=== PATIENT | female | born 1955 | race Two or more races ===

== ENCOUNTER 2020-10-07 08:50 | Inpatient (IN) | payer MEDICARE, OTHER ==
[~2020-10-07] VITALS: Ht 165.1 cm; Wt 98.5 kg
[2020-10-07 09:39] LABS: Basophils # (auto) 0 10 ^3/uL (0-0.2); Basophils % (auto) 0.1 % (0.0-2.0); Eosinophils # (auto) 0 10 ^3/uL (0-0.8); Hematocrit 44.7 % (36.0-46.0); Lymphocytes # (auto) 0.9 10 ^3/uL (0.4-5.4); Lymphocytes % (auto) 8.9 % (10.0-50.0); Mean Corpuscular Hgb Conc. 33.5 g/dL (32.0-36.0); Mean Corpuscular Volume 92.6 fL (80.0-100.0); Monocytes # (auto) 0.5 10 ^3/uL (0-1.3); Monocytes % (auto) 5.2 % (0.0-12.0); Neutrophils # (auto) 8.4 10 ^3/uL (1.6-8.6); Neutrophils % (auto) 85.8 % (37.0-80.0); Nucleated Red Blood Cells % 0.1 %; Platelet Count (auto) 173 10^3/uL (140-450); Red Blood Cells 4.83 10^6/uL (4.0-5.20); Red Cell Distribution Width 13.6 % (11.8-14.3); White Blood Cell 9.9 10^3/uL (4.4-10.8)
[2020-10-07 09:57] LABS: Albumin 2.3 g/dL (3.4-5.0); Potassium 3.7 mmol/L (3.5-5.1)
[2020-10-07 10:05] LABS: BUN/Creatinine Ratio 14.1; Bilirubin, Total 0.7 mg/dL (0.2-1.0); CRP High Sensitivity 14.6 mg/dL (< 0.3); Total Protein 7.3 g/dL (6.4-8.2)
[2020-10-07 10:16] LABS: Urine Bacteria NONE SEEN /hpf (None Seen); Urine Blood 2+ /uL (Negative); Urine Hyaline Cast FEW /lpf (0 - 2); Urine Mucus FEW (None Seen); Urine Specific Gravity 1.019 (1.001-1.035); Urine WBC 7 /hpf (0 - 5)
[2020-10-07] MEDS ORDERED: DexAMETHasone SOD PHOS 10MG/1ML VIAL INJ IV ONE (15:45)
[2020-10-07] MEDS ORDERED: DOXYCYCLINE 100MG/250ML 250 ML IV ONE (15:45)
[2020-10-07] MEDS ORDERED: ENOXAPARIN SOD 100 MG/1 ML SYRINGE SC ONE (16:00)
[2020-10-07] MEDS ORDERED: DEXTROSE (50%) 50ML SYRG IV PRN (16:00)
[2020-10-07] MEDS ORDERED: ALUM & MAG HYDROX-SIMETH LIQ(MAALOX) 30 ML PO PRN (16:00)
[2020-10-07] MEDS ORDERED: REMDESIVIR PER PHARMACY IV SCH (16:00)
[2020-10-07] MEDS ORDERED: VANCOMYCIN PER PHARMACY 0 MG IV SCH (16:00)
[2020-10-07] MEDS ORDERED: DOCUSATE SOD 100 MG CAP PO PRN (16:00)
[2020-10-07] MEDS ORDERED: PIPERACILLIN-TAZOB 3.375GM 100 ML IV ONE (16:00)
[2020-10-07] MEDS ORDERED: ACETAMINOPHEN 325 MG TAB PO PRN (16:00)
[2020-10-07] MEDS ORDERED: LORazepam 0.5 MG TAB PO PRN (16:00)
[2020-10-07] MEDS ORDERED: NITROGLYCERIN 0.4 MG SL TAB SL PRN (16:00)
[2020-10-07] MEDS ORDERED: MORPHINE SULF INJ 2 MG/ML SYRINGE 1ML IV PRN (16:00)
[2020-10-07] MEDS ORDERED: PHEN1CAP74 PO (16:12)
[2020-10-07] MEDS ORDERED: PHEN1LIQ97 PO (16:12)
[2020-10-07 16:57] LABS: Alcohol, Urine < 3.0 mg/dL (0-10); Amphetamine Screen, Urine NEGATIVE (NEGATIVE); Barbiturate Scree,Urine NEGATIVE (NEGATIVE); Benzodiazephine Screen, Urine NEGATIVE (NEGATIVE); Cannabinoid Screen, Urine NEGATIVE (NEGATIVE); Cocaine Screen, Urine NEGATIVE (NEGATIVE); Opiate Scree,Urine NEGATIVE (NEGATIVE); Phencyclidine Screen, Urine NEGATIVE (NEGATIVE)
[2020-10-07] MEDS: InsuLIN REG 1unit/0.01ml Soln (100units/ml) SC SCH (17:00)
[2020-10-07] MEDS: ASCORBIC ACID 1,000 MG TAB PO SCH (17:54)
[2020-10-07] MEDS: ENOXAPARIN SOD 100 MG/1 ML SYRINGE SC SCH (18:00)
[2020-10-07 20:34] LABS: Cholesterol 120 mg/dL (< 200); HDL Cholesterol 13 mg/dL (40-59); LDL Cholesterol 70 mg/dL (< 100); Triglycerides 261 mg/dL (< 150)
[2020-10-07] MEDS ORDERED: VANCOMYCIN 1GM/250ML 250 ML IV ONE (21:30)
[2020-10-07] MEDS: BUDESONIDE (INHALATION) 180 MCG IH IN SCH (22:00)
[2020-10-07] MEDS ORDERED: InsuLIN REG 1unit/0.01ml Soln (100units/ml) SC SCH (22:00)
[2020-10-07] MEDS: ALBUTEROL SULF HFA 90MCG INH 200DOSE IN SCH (22:00)
[2020-10-07] MEDS: SODIUM CHLORIDE 0.9% 1,000 ML IV SCH (23:20)
[2020-10-07] MEDS: ACCU-CHEK COMFORT CURVE STRIP VI SCH (23:21)
[2020-10-07] MEDS: methylPREDNISolone SOD SUCC 40 MG/ML VL IV SCH (23:42)
--- NOTE | 2020-10-07 23:43 | NUR ---
MDI AND DPI HELD DUE TO PENDING RESULTS.
[2020-10-08] MEDS: PIPERACILLIN-TAZOB 3.375GM 100 ML IV SCH ×5 (02:31→23:24)
[2020-10-08] MEDS: SODIUM CHLORIDE 0.9% 1,000 ML IV SCH (05:15)
[2020-10-08 06:00] LABS: Basophils # (auto) 0 10 ^3/uL (0-0.2); Basophils % (auto) 0.2 % (0.0-2.0); Eosinophils # (auto) 0 10 ^3/uL (0-0.8); Hematocrit 44.6 % (36.0-46.0); Hemoglobin 14.6 g/dL (12.2-16.2); Lymphocytes # (auto) 0.6 10 ^3/uL (0.4-5.4); Lymphocytes % (auto) 6.1 % (10.0-50.0); Mean Corpuscular Hemoglobin 30.2 pg (28.0-32.0); Mean Corpuscular Hgb Conc. 32.7 g/dL (32.0-36.0); Mean Corpuscular Volume 92.5 fL (80.0-100.0); Monocytes # (auto) 0.4 10 ^3/uL (0-1.3); Monocytes % (auto) 3.8 % (0.0-12.0); Neutrophils # (auto) 9.1 10 ^3/uL (1.6-8.6); Neutrophils % (auto) 89.9 % (37.0-80.0); Platelet Count (auto) 174 10^3/uL (140-450); Red Blood Cells 4.82 10^6/uL (4.0-5.20); Red Cell Distribution Width 13.6 % (11.8-14.3); White Blood Cell 10.2 10^3/uL (4.4-10.8)
[2020-10-08] MEDS: ALBUTEROL SULF HFA 90MCG INH 200DOSE IN SCH ×2 (06:00→14:00)
[2020-10-08 06:32] LABS: BUN/Creatinine Ratio 16.3; Potassium 4.3 mmol/L (3.5-5.1)
[2020-10-08 06:35] LABS: Bilirubin, Total 0.9 mg/dL (0.2-1.0); Total Protein 6.9 g/dL (6.4-8.2)
[2020-10-08] MEDS: ENOXAPARIN SOD 100 MG/1 ML SYRINGE SC SCH ×2 (07:36→17:56)
[2020-10-08] MEDS: ACCU-CHEK COMFORT CURVE STRIP VI SCH ×4 (07:36→23:24)
[2020-10-08] MEDS: InsuLIN REG 1unit/0.01ml Soln (100units/ml) SC SCH ×4 (07:36→23:31)
[2020-10-08] MEDS: methylPREDNISolone SOD SUCC 40 MG/ML VL IV SCH ×2 (07:37→14:00)
[2020-10-08] MEDS ORDERED: VANCOMYCIN 1GM/250ML 250 ML IV SCH (10:00)
[2020-10-08] MEDS: BUDESONIDE (INHALATION) 180 MCG IH IN SCH ×2 (10:11→10:36)
[2020-10-08] MEDS: ASCORBIC ACID 1,000 MG TAB PO SCH (10:18)
[2020-10-08] MEDS: ZINC SULFATE 220mg CAP or TAB PO SCH (10:18)
[2020-10-08] MEDS: CHOLECALCIFEROL (VITD3) 2,000 UNIT CAP PO SCH (10:18)
[2020-10-08] MEDS: ASPirin 81 mg TAB PO SCH (10:18)
[2020-10-08] MEDS: OSELTAMIVIR 75 MG CAP PO SCH (10:18)
[2020-10-08] MEDS: MORPHINE SULF INJ 2 MG/ML SYRINGE 1ML IV PRN (10:23)
[2020-10-08 12:18] VITALS: BP 137/62
--- NOTE | 2020-10-08 17:05 | NUR ---
REPORT RECEIVED I RECEIVED REPORT FROM ALCIRA ENCINAS
--- NOTE | 2020-10-08 17:30 | NUR ---
Telemetry admit from [facility] HORNEDEMOND admitted to Telemetry unit after SBAR received. Patient oriented to Roz Rodriguez, primary RN, unit, room, bed, and unit policies regarding patient care and visiting hours. Patient now on continuous telemetry monitoring, tele box # 29 and telemetry reading on arrival to unit is . Patient placed on bedside oxygen, weighed by bedscale and encouraged to call if they need something. All questions and concerns addressed, patient verbalized understanding. Note:
[2020-10-08 17:47] VITALS: BP 147/75
--- NOTE | 2020-10-08 18:00 | NUR ---
SPOKE WITH AYESHA DARDEN PATIENTS O2 SATS ARE 91%WHILE PRONING AND PATIENT IS STRUGGLING TO BREATHE. ORDERS GIVEN WILL FOLLOW THROUGH WITH CARE.
[2020-10-08] MEDS ORDERED: DEXTROSE (50%) 50ML SYRG IV PRN (19:15)
[2020-10-08] MEDS ORDERED: FUROSEMIDE 40 MG/4 ML VIAL IV ONE (19:15)
--- NOTE | 2020-10-08 19:25 | NUR ---
Opening note Assumed care fo patient, patient is alert and orientated x4. NO sob or distress noted at this time. Patient is a little anxious at this time. Patient is on non rebreather 15L oxymizer. no pain at this time. Bed is locked in lowest position, side rails up x2. POC reviewed, all questions answered. Will continue care.
[2020-10-08 20:00] VITALS: BP 136/67
--- NOTE | 2020-10-08 20:00 | NUR ---
Rt at bedside RT placing patient on high flow oxygen. Will continue to monitor. Patient tolerated well.
[2020-10-08] MEDS: ATORVASTATIN 20 MG TAB PO SCH (21:00)
--- NOTE | 2020-10-08 21:00 | NUR ---
Paged RT Patient refuses to prone. patient is saturating at 85%. RT paged. RT said per sleeping bag filler ok to have patient saturating above 83%. Patient states she feels fine no sob or distress noted. Patient resting comfortable in bed. Will continue care
[2020-10-08 22:00] VITALS: BP 136/67
[2020-10-09] VITALS (9 sets, daily range): BP systolic 98–133; BP diastolic 40–64
--- NOTE | 2020-10-09 00:25 | NUR ---
Md Linares at bedside MD assisting patient to prone and use IS. Patient verbalized understanding. Patient proning and oxygen saturation is now 93%. Patient states she is not comfortable and she does not want to stay like this very long. Educated patient on the importance of keeping her oxygen above 90%. Patient verbalized understanding and said she will stay proning for a little while longer. Dr Aware. No new orders at this time. Will continue care.
[2020-10-09] MEDS: ACCU-CHEK COMFORT CURVE STRIP VI SCH ×4 (06:00→23:49)
[2020-10-09] MEDS: ENOXAPARIN SOD 100 MG/1 ML SYRINGE SC SCH ×2 (06:37→18:19)
[2020-10-09] MEDS: PIPERACILLIN-TAZOB 3.375GM 100 ML IV SCH ×4 (06:37→23:49)
[2020-10-09] MEDS: InsuLIN REG 1unit/0.01ml Soln (100units/ml) SC SCH ×4 (06:41→23:51)
--- NOTE | 2020-10-09 07:32 | NUR ---
Closing note Endorsed care to day shift RN. no sob or distress noted.
--- NOTE | 2020-10-09 08:00 | NUR ---
Opening Shift Note Assumed care of patient, awake and alert. With S/S of severe distress/SOB, no complaints of pain. Patient on high flow with 100%FiO2 at 60lpm O2 continuously administered. Instructed on POC and to call for assist PRN, will continue to monitor for changes Q1hr and PRN.
--- NOTE | 2020-10-09 09:30 | NUR ---
Desat at 80%, RT informed and assessed the patient at bedside. Changed to non-rebreather mask at 15lpm O2 continuously administered. O2 sat went up to 93%. Will continue to monitor.
--- NOTE | 2020-10-09 10:15 | NUR ---
Patient desaturated again at 80% and below. RT at bedside. Hooked back to high flow with FiO2 at 100% and O2 at 60lpm continuously administered. Patient on left side lying position now, O2 sat went up to 96%. Dr. Bingham is made aware. For pulmo consult called in for Dr. Levi. Will continue care.
[2020-10-09] MEDS: ASCORBIC ACID 1,000 MG TAB PO SCH (10:31)
[2020-10-09] MEDS: FUROSEMIDE 40 MG/4 ML VIAL IV SCH (10:31)
[2020-10-09] MEDS: OSELTAMIVIR 75 MG CAP PO SCH (10:31)
[2020-10-09] MEDS: ASPirin 81 mg TAB PO SCH (10:31)
[2020-10-09] MEDS: BUDESONIDE (INHALATION) 180 MCG IH IN SCH ×2 (10:36→21:15)
[2020-10-09] MEDS: ZINC SULFATE 220mg CAP or TAB PO SCH (12:50)
[2020-10-09] MEDS: CHOLECALCIFEROL (VITD3) 2,000 UNIT CAP PO SCH (12:50)
[2020-10-09] MEDS: DexAMETHasone SOD PHOS 10MG/1ML VIAL INJ IV SCH (12:50)
[2020-10-09] MEDS ORDERED: REMDESIVIR 200 MG in NS 210ml LOADING DOSE ADULT IV ONE (17:00)
--- NOTE | 2020-10-09 17:49 | NUR ---
Respiratory note: CALLED TO BEDSIDE DUE TO PTS O2 SAT BEING IN THE 60'S. ENTERED ROOM, SPO2 90%.
[2020-10-09 20:52] LABS: Calcium 8.1 mg/dL (8.5-10.1)
[2020-10-09 20:55] LABS: Albumin 1.9 g/dL (3.4-5.0)
[2020-10-09 20:58] LABS: Bilirubin, Total 0.8 mg/dL (0.2-1.0); Total Protein 6.8 g/dL (6.4-8.2)
[2020-10-09] MEDS: ALBUTEROL SULF HFA 90MCG INH 200DOSE IN PRN (22:43)
[2020-10-09] MEDS: ATORVASTATIN 20 MG TAB PO SCH (23:48)
[2020-10-09] MEDS: INSULIN LANTUS (GLARGINE) 1 /0.01ml (100units/ml) SC SCH (23:49)
[2020-10-10 05:00] VITALS: BP 106/56
[2020-10-10] MEDS: BUDESONIDE (INHALATION) 180 MCG IH IN SCH ×3 (06:09→21:44)
[2020-10-10 06:21] LABS: Albumin 1.8 g/dL (3.4-5.0); Calcium 8.1 mg/dL (8.5-10.1); Potassium 3.5 mmol/L (3.5-5.1)
[2020-10-10 06:26] LABS: Bilirubin, Total 0.7 mg/dL (0.2-1.0); Total Protein 6.4 g/dL (6.4-8.2)
[2020-10-10] MEDS: ENOXAPARIN SOD 80 MG/0.8ML SYRINGE SC SCH ×2 (06:46→17:43)
[2020-10-10] MEDS: ACCU-CHEK COMFORT CURVE STRIP VI SCH ×3 (06:47→17:43)
[2020-10-10] MEDS: PIPERACILLIN-TAZOB 3.375GM 100 ML IV SCH ×3 (06:47→18:58)
[2020-10-10] MEDS: InsuLIN REG 1unit/0.01ml Soln (100units/ml) SC SCH ×3 (06:48→17:57)
--- NOTE | 2020-10-10 07:35 | NUR ---
Opening Shift Note Assumed care of patient, sleeping, breathing even and unlabored, RR 28, on high flow O2 @ 60L, on continuos pulse ox. patient alert and oriented x4. No S/S of distress/SOB or pain reported at this time, HOB >30. Instructed on POC and to call for assist PRN, call light within reach, bed alarm on, patient instructed to self prone frequently, pt verbalized understanding. will continue to monitor for changes Q1hr and PRN.
[2020-10-10 08:00] VITALS: BP 117/55
[2020-10-10] MEDS: ALBUTEROL SULF HFA 90MCG INH 200DOSE IN PRN ×2 (08:39→18:26)
[2020-10-10 09:00] VITALS: BP 117/55
[2020-10-10] MEDS: ONDANSETRON HCL 4 MG/2 ML VIAL IV PRN (09:14)
[2020-10-10] MEDS: ZINC SULFATE 220mg CAP or TAB PO SCH (09:15)
[2020-10-10] MEDS: ASPirin 81 mg TAB PO SCH (09:15)
[2020-10-10] MEDS: DexAMETHasone SOD PHOS 10MG/1ML VIAL INJ IV SCH (09:15)
[2020-10-10] MEDS: CHOLECALCIFEROL (VITD3) 2,000 UNIT CAP PO SCH (09:16)
[2020-10-10] MEDS: ASCORBIC ACID 1,000 MG TAB PO SCH (09:16)
[2020-10-10] MEDS: OSELTAMIVIR 75 MG CAP PO SCH (09:18)
[2020-10-10] MEDS: FUROSEMIDE 40 MG/4 ML VIAL IV SCH ×2 (09:19→10:00)
[2020-10-10] MEDS ORDERED: FUROSEMIDE 40 MG/4 ML VIAL IV ONE (09:45)
--- NOTE | 2020-10-10 10:49 | NUR ---
DR KERNS AT BEDSIDE DISCUSSING POC, INCLUDING CONVALESCENT PLASMA, PT AXOX4, AGREES TO TREATMENT
[2020-10-10] MEDS ORDERED: diphenhdrAMINE HCL 50 MG/1 ML VL IV PRN (11:00)
--- NOTE | 2020-10-10 11:50 | NUR ---
PULMONOLOGY AT BESIDE DR ANGELA AT BEDSIDE, DISCUSSING POC WITH PT, PT AXOX4, CONT CARE
--- NOTE | 2020-10-10 12:00 | NUR ---
Midline Placement: Patient educated on need for midline placement. All risks and benefits explained and all questions and concerns addresses prior to procedure. 18g/10cm midline inserted via LEFT BASILIC vein using Ultrasound. Sterile technique utilized. Blood return obtained from THE SINGLE lumen and flushed easily with NS using proper technique. Midline secured with saline lock; biodisc and occlusive dressing applied. Primary RN notified. Midline lot # [id number].
[2020-10-10 13:00] VITALS: BP 115/59
--- NOTE | 2020-10-10 14:07 | NUR ---
Assessment Patient is a 65-year-old female. Unable to speak to patient. Assessment was completed with patient daughter Analia . Prior to admission patient reside home with family and functioned independently. Patient could care for her own ADL's. Patient does not have any medical equipment now. Patient will return home to her prior living arrangements post discharge and family will transport her home. Advised Analia for patient to follow up with upon d/c . Informed Analia she has the right to participate in all discharge planning. Analia verbalized understanding. Addendum: 10/10/20 at 1411 by ARI COLINDRES Amended: Links added.
[2020-10-10] MEDS: HYDROcodone-ACET 5/325MG TAB PO PRN ×2 (15:03→22:09)
[2020-10-10 17:00] VITALS: BP 101/54
[2020-10-10] MEDS: REMDESIVIR 100 MG in SODIUM CHL 0.9% 250 ML IV SCH (17:43)
[2020-10-10] MEDS: ATORVASTATIN 20 MG TAB PO SCH (21:50)
[2020-10-10 21:57] VITALS: BP 114/64
[2020-10-10] MEDS: INSULIN LANTUS (GLARGINE) 1 /0.01ml (100units/ml) SC SCH (22:08)
[2020-10-11] VITALS (7 sets, daily range): BP systolic 97–135; BP diastolic 48–67
[2020-10-11] MEDS: ACCU-CHEK COMFORT CURVE STRIP VI SCH ×5 (00:34→21:50)
[2020-10-11] MEDS: PIPERACILLIN-TAZOB 3.375GM 100 ML IV SCH ×3 (00:34→12:28)
[2020-10-11] MEDS: InsuLIN REG 1unit/0.01ml Soln (100units/ml) SC SCH ×5 (00:37→21:49)
[2020-10-11] MEDS: ENOXAPARIN SOD 80 MG/0.8ML SYRINGE SC SCH ×2 (06:27→17:44)
[2020-10-11 06:37] LABS: Basophils # (auto) 0 10 ^3/uL (0-0.2); Basophils % (auto) 0.3 % (0.0-2.0); Eosinophils # (auto) 0 10 ^3/uL (0-0.8); Hematocrit 43.5 % (36.0-46.0); Hemoglobin 14.1 g/dL (12.2-16.2); Lymphocytes # (auto) 1.1 10 ^3/uL (0.4-5.4); Lymphocytes % (auto) 9.9 % (10.0-50.0); Mean Corpuscular Hemoglobin 30.6 pg (28.0-32.0); Mean Corpuscular Hgb Conc. 32.5 g/dL (32.0-36.0); Monocytes # (auto) 0.8 10 ^3/uL (0-1.3); Monocytes % (auto) 7.6 % (0.0-12.0); Neutrophils # (auto) 8.9 10 ^3/uL (1.6-8.6); Neutrophils % (auto) 82.2 % (37.0-80.0); Platelet Count (auto) 205 10^3/uL (140-450); Red Blood Cells 4.62 10^6/uL (4.0-5.20); Red Cell Distribution Width 13.6 % (11.8-14.3); White Blood Cell 10.8 10^3/uL (4.4-10.8)
[2020-10-11 07:03] LABS: Potassium 3.6 mmol/L (3.5-5.1)
[2020-10-11 07:28] LABS: Bilirubin, Total 0.6 mg/dL (0.2-1.0); Calcium 7.9 mg/dL (8.5-10.1); Total Protein 6.6 g/dL (6.4-8.2)
--- NOTE | 2020-10-11 08:00 | NUR ---
Opening Shift Note Assumed care of patient, awake, alert and oriented X4. No S/S of distress/SOB or pain. O2 @ 60 LPM via Hi-Flow with sats @ 92%. Left upper arm midline patent with dressing clean, dry and intact, left antecubital, 20 gauge and right antecubital 20 gauge both patent and saline locked. Urethral Buckley catheter draining clear, yellow urine to gravity. Instructed on POC and to call for assist PRN, verbalized understanding. Bed locked, in lowest position, call light within reach, will continue to monitor for changes Q1hr and PRN.
[2020-10-11] MEDS: FUROSEMIDE 40 MG/4 ML VIAL IV SCH (09:44)
--- NOTE | 2020-10-11 11:02 | NUR ---
Nutrition Assessment Est energy needs 8501-6050 kcal (20-23 kcal/kg BW 81.3kg) Est protein needs 57-74g (1.1.3g/kg IBW 57kg) Will monitor and reassess prn. Addendum: 10/11/20 at [address] Amended: Links added.
--- NOTE | 2020-10-11 11:15 | NUR ---
ROUNDS Dr Thomas at bedside for rounds, new orders received and followed through. Patient updated on plan of care, verbalized understanding.
[2020-10-11] MEDS: DexAMETHasone SOD PHOS 10MG/1ML VIAL INJ IV SCH (12:27)
[2020-10-11] MEDS: ONDANSETRON HCL 4 MG/2 ML VIAL IV PRN (12:29)
[2020-10-11] MEDS: ASPirin 81 mg TAB PO SCH (12:52)
[2020-10-11] MEDS: OSELTAMIVIR 75 MG CAP PO SCH (12:52)
[2020-10-11] MEDS: ZINC SULFATE 220mg CAP or TAB PO SCH (12:52)
[2020-10-11] MEDS: ASCORBIC ACID 1,000 MG TAB PO SCH (12:52)
[2020-10-11] MEDS: CHOLECALCIFEROL (VITD3) 2,000 UNIT CAP PO SCH (12:52)
[2020-10-11] MEDS ORDERED: DEXTROSE (50%) 50ML SYRG IV PRN (14:45)
--- NOTE | 2020-10-11 17:20 | NUR ---
REMDESIVIR V/S 119/53 RR 22 BPM HR 65 BPM Temp 98.7 F
--- NOTE | 2020-10-11 17:35 | NUR ---
REMDESIVIR V/S 110/54 RR 23 BPM HR 72 BPM Temp 98.6 F
[2020-10-11] MEDS: REMDESIVIR 100 MG in SODIUM CHL 0.9% 250 ML IV SCH (17:43)
--- NOTE | 2020-10-11 18:30 | NUR ---
REMDESIVIR Remdesivir completed V/S 108/52 HR 64 bpm RR 20 BPM Temp 98.6 F
[2020-10-11] MEDS: BUDESONIDE (INHALATION) 180 MCG IH IN SCH (18:51)
[2020-10-11] MEDS: PIPERACILLIN-TAZOB 2.25GM 50 ML IV SCH (18:53)
--- NOTE | 2020-10-11 19:30 | NUR ---
Opening Shift Note Assumed care of patient. Patient laying down and resting in bed. No S/S of distress/SOB or pain. Safety measures maintained by keeping the bed locked in lowest position, 2 side rails up, personal items and call light within reach. Instructed on POC and to call for assist PRN, will continue to monitor for changes Q1hr and PRN. Addendum: 10/12/20 at 0450 by RICK BYRNES RN RN Patient on 60LPM oxygen saturation at 90%. Patient's Buckley catheter is draining and hung below the bladder.
--- NOTE | 2020-10-11 19:33 | NUR ---
Care endorsed to CE Garza, night nurse.
[2020-10-11] MEDS: ALBUTEROL SULF HFA 90MCG INH 200DOSE IN PRN (20:11)
[2020-10-11] MEDS: INSULIN LANTUS (GLARGINE) 1 /0.01ml (100units/ml) SC SCH (21:49)
[2020-10-11] MEDS: ATORVASTATIN 20 MG TAB PO SCH (21:50)
[2020-10-11] MEDS: HYDROcodone-ACET 5/325MG TAB PO PRN (21:52)
--- NOTE | 2020-10-11 22:44 | NUR ---
Started convalescent plasma transfusion
[2020-10-12 00:52] VITALS: BP 118/44
--- NOTE | 2020-10-12 00:52 | NUR ---
Plasma transfused. Patient's VSS. No signs and symptoms of transfusion reactions.
[2020-10-12 05:05] VITALS: BP 124/60
[2020-10-12 05:23] LABS: Basophils # (auto) 0 10 ^3/uL (0-0.2); Basophils % (auto) 0.3 % (0.0-2.0); Eosinophils # (auto) 0 10 ^3/uL (0-0.8); Hematocrit 40.8 % (36.0-46.0); Hemoglobin 13.5 g/dL (12.2-16.2); Lymphocytes % (auto) 9.3 % (10.0-50.0); Mean Corpuscular Hemoglobin 30.3 pg (28.0-32.0); Mean Corpuscular Hgb Conc. 33.1 g/dL (32.0-36.0); Mean Corpuscular Volume 91.4 fL (80.0-100.0); Monocytes # (auto) 0.5 10 ^3/uL (0-1.3); Monocytes % (auto) 4.6 % (0.0-12.0); Neutrophils # (auto) 9.2 10 ^3/uL (1.6-8.6); Neutrophils % (auto) 85.8 % (37.0-80.0); Platelet Count (auto) 201 10^3/uL (140-450); Red Blood Cells 4.46 10^6/uL (4.0-5.20); Red Cell Distribution Width 13.2 % (11.8-14.3); White Blood Cell 10.8 10^3/uL (4.4-10.8)
[2020-10-12] MEDS: ONDANSETRON HCL 4 MG/2 ML VIAL IV PRN (05:26)
[2020-10-12] MEDS: HYDROcodone-ACET 5/325MG TAB PO PRN ×2 (05:26→22:18)
[2020-10-12 05:44] LABS: Albumin 1.9 g/dL (3.4-5.0); Calcium 7.8 mg/dL (8.5-10.1); Potassium 3.5 mmol/L (3.5-5.1)
[2020-10-12 05:49] LABS: BUN/Creatinine Ratio 26.7; Bilirubin, Total 0.5 mg/dL (0.2-1.0); Total Protein 6.4 g/dL (6.4-8.2)
[2020-10-12] MEDS: PIPERACILLIN-TAZOB 2.25GM 50 ML IV SCH ×4 (06:39→19:56)
[2020-10-12] MEDS: InsuLIN REG 1unit/0.01ml Soln (100units/ml) SC SCH ×4 (06:42→22:17)
[2020-10-12] MEDS: ACCU-CHEK COMFORT CURVE STRIP VI SCH ×4 (06:46→22:16)
[2020-10-12] MEDS: ENOXAPARIN SOD 80 MG/0.8ML SYRINGE SC SCH ×2 (06:52→17:49)
--- NOTE | 2020-10-12 08:00 | NUR ---
Opening Shift Note Assumed care of patient, awake, alert and oriented X4. No S/S of distress/SOB or pain. O2 @ 70 LPM via Hi-Flow @ 100% with sats @ 95%. Left upper arm midline patent with dressing clean, dry and intact, left antecubital, 20 gauge and right antecubital 20 gauge both patent and saline locked. Urethral Buckley catheter draining clear, light francisco urine to gravity. Instructed on POC and to call for assist PRN, verbalized understanding. Bed locked, in lowest position, call light within reach, will continue to monitor for changes Q1hr and PRN.
[2020-10-12 08:40] VITALS: BP 112/66
[2020-10-12] MEDS: BUDESONIDE (INHALATION) 180 MCG IH IN SCH ×2 (10:00→22:04)
--- NOTE | 2020-10-12 10:15 | NUR ---
ROUNDS Dr Thomas at bedside for rounds, new orders received and followed through. Patient updated on plan of care, verbalized understanding.
[2020-10-12] MEDS: DexAMETHasone SOD PHOS 10MG/1ML VIAL INJ IV SCH (12:13)
[2020-10-12] MEDS: ZINC SULFATE 220mg CAP or TAB PO SCH (12:14)
[2020-10-12] MEDS: ASPirin 81 mg TAB PO SCH (12:14)
[2020-10-12] MEDS: FUROSEMIDE 40 MG/4 ML VIAL IV SCH (12:14)
[2020-10-12] MEDS: OSELTAMIVIR 75 MG CAP PO SCH (12:14)
[2020-10-12] MEDS: ASCORBIC ACID 1,000 MG TAB PO SCH (12:15)
[2020-10-12] MEDS: CHOLECALCIFEROL (VITD3) 2,000 UNIT CAP PO SCH (12:15)
[2020-10-12] MEDS: ALBUTEROL SULF HFA 90MCG INH 200DOSE IN PRN ×2 (12:16→22:04)
[2020-10-12 12:17] VITALS: BP 111/53
[2020-10-12 16:54] VITALS: BP 115/69
[2020-10-12] MEDS: REMDESIVIR 100 MG in SODIUM CHL 0.9% 250 ML IV SCH (17:50)
--- NOTE | 2020-10-12 17:50 | NUR ---
REMDESIVIR Pre Transfusion 115/69 72 18 98.4 95%
--- NOTE | 2020-10-12 18:05 | NUR ---
REMDESIVIR 15 min Transfusion 110/64 65 20 98.7 92%
--- NOTE | 2020-10-12 19:10 | NUR ---
REMDESIVIR Post Transfusion 137/70 68 22 98.5 96%
--- NOTE | 2020-10-12 19:23 | NUR ---
Care endorsed to CE Garza, night nurse.
--- NOTE | 2020-10-12 19:45 | NUR ---
Opening Shift Note Assumed care of patient, awake and alert. No signs and symptoms of SOB or pain. Patient on 60% hi-flow oxygen. Patient also on prone position. Patient saturation is at 95%. Patient's hinds is draining and hung below the bladder. Safety measures maintained by keeping the bed locked in lowest position, 2 side rails up, personal items and call light within reach. Instructed on POC and to call for assist PRN, will continue to monitor for changes Q1hr and PRN.
[2020-10-12 22:00] VITALS: BP 137/70
[2020-10-12] MEDS: ATORVASTATIN 20 MG TAB PO SCH (22:16)
[2020-10-12] MEDS: INSULIN LANTUS (GLARGINE) 1 /0.01ml (100units/ml) SC SCH (22:17)
[2020-10-13 05:00] VITALS: BP 131/65
[2020-10-13] MEDS: BUDESONIDE (INHALATION) 180 MCG IH IN SCH ×2 (06:08→18:10)
[2020-10-13] MEDS: PIPERACILLIN-TAZOB 2.25GM 50 ML IV SCH ×5 (06:41→23:18)
[2020-10-13] MEDS: ACCU-CHEK COMFORT CURVE STRIP VI SCH ×4 (06:43→21:08)
[2020-10-13] MEDS: ENOXAPARIN SOD 80 MG/0.8ML SYRINGE SC SCH ×2 (06:43→18:00)
[2020-10-13] MEDS: InsuLIN REG 1unit/0.01ml Soln (100units/ml) SC SCH ×4 (06:44→21:23)
--- NOTE | 2020-10-13 07:30 | NUR ---
Opening Shift Note Assumed care of patient, awake and alert. No s/s of SOB or pain. Patient on 60% hi-flow oxygen. Patient also on prone position. Patient's hinds is patent, free of kinks and hung below the bladder. Bed is locked in lowest position, 2 side rails up and call light within reach. Instructed on POC and to call for assist PRN, will continue to monitor for changes Q1hr and PRN.
[2020-10-13 09:29] VITALS: BP 137/53
[2020-10-13] MEDS: DexAMETHasone SOD PHOS 10MG/1ML VIAL INJ IV SCH (10:24)
[2020-10-13] MEDS: ZINC SULFATE 220mg CAP or TAB PO SCH (10:24)
[2020-10-13] MEDS: ASPirin 81 mg TAB PO SCH (10:24)
[2020-10-13] MEDS: FUROSEMIDE 40 MG/4 ML VIAL IV SCH (10:24)
[2020-10-13] MEDS: OSELTAMIVIR 75 MG CAP PO SCH (10:25)
[2020-10-13] MEDS: CHOLECALCIFEROL (VITD3) 2,000 UNIT CAP PO SCH (10:25)
[2020-10-13] MEDS: ASCORBIC ACID 1,000 MG TAB PO SCH (10:25)
[2020-10-13] MEDS: ONDANSETRON HCL 4 MG/2 ML VIAL IV PRN (10:25)
[2020-10-13 10:35] LABS: Basophils # (auto) 0 10 ^3/uL (0-0.2); Basophils % (auto) 0.1 % (0.0-2.0); Eosinophils # (auto) 0 10 ^3/uL (0-0.8); Eosinophils % (auto) 0.2 % (0.0-7.0); Hemoglobin 13.4 g/dL (12.2-16.2); Lymphocytes # (auto) 0.9 10 ^3/uL (0.4-5.4); Lymphocytes % (auto) 5.8 % (10.0-50.0); Mean Corpuscular Hgb Conc. 32.6 g/dL (32.0-36.0); Monocytes # (auto) 0.5 10 ^3/uL (0-1.3); Monocytes % (auto) 3.4 % (0.0-12.0); Neutrophils # (auto) 13.7 10 ^3/uL (1.6-8.6); Neutrophils % (auto) 90.5 % (37.0-80.0); Platelet Count (auto) 222 10^3/uL (140-450); Red Blood Cells 4.46 10^6/uL (4.0-5.20); Red Cell Distribution Width 13.2 % (11.8-14.3); White Blood Cell 15.1 10^3/uL (4.4-10.8)
[2020-10-13 10:54] LABS: BUN/Creatinine Ratio 20.8; Potassium 3.2 mmol/L (3.5-5.1)
[2020-10-13] MEDS: HYDROcodone-ACET 5/325MG TAB PO PRN (11:09)
[2020-10-13] MEDS: ALBUTEROL SULF HFA 90MCG INH 200DOSE IN PRN (12:36)
[2020-10-13] MEDS ORDERED: POTASSIUM CHL 20 Meq TABLET PO ONE ×2 (12:45→15:30)
[2020-10-13 13:00] VITALS: BP 92/55
[2020-10-13] MEDS: guaiFENesin-DM 100/10mg/5ml SYR PO PRN (15:20)
[2020-10-13 16:33] VITALS: BP 98/56
[2020-10-13] MEDS: REMDESIVIR 100 MG in SODIUM CHL 0.9% 250 ML IV SCH (17:15)
[2020-10-13] MEDS: ATORVASTATIN 20 MG TAB PO SCH (21:08)
[2020-10-13] MEDS: INSULIN LANTUS (GLARGINE) 1 /0.01ml (100units/ml) SC SCH (21:24)
[2020-10-13 22:00] VITALS: BP 126/62
[2020-10-14] MEDS: MORPHINE SULF INJ 2 MG/ML SYRINGE 1ML IV PRN (04:18)
[2020-10-14] MEDS: PIPERACILLIN-TAZOB 2.25GM 50 ML IV SCH ×3 (06:36→17:20)
[2020-10-14] MEDS: ACCU-CHEK COMFORT CURVE STRIP VI SCH ×4 (06:36→21:57)
[2020-10-14] MEDS: BUDESONIDE (INHALATION) 180 MCG IH IN SCH ×2 (06:40→21:51)
[2020-10-14] MEDS: ALBUTEROL SULF HFA 90MCG INH 200DOSE IN PRN ×2 (06:40→21:51)
[2020-10-14 06:41] LABS: Basophils # (auto) 0 10 ^3/uL (0-0.2); Basophils % (auto) 0.1 % (0.0-2.0); Eosinophils # (auto) 0 10 ^3/uL (0-0.8); Hematocrit 39.9 % (36.0-46.0); Hemoglobin 13.1 g/dL (12.2-16.2); Lymphocytes # (auto) 0.5 10 ^3/uL (0.4-5.4); Lymphocytes % (auto) 5.5 % (10.0-50.0); Mean Corpuscular Hemoglobin 30.1 pg (28.0-32.0); Mean Corpuscular Hgb Conc. 32.9 g/dL (32.0-36.0); Mean Corpuscular Volume 91.6 fL (80.0-100.0); Monocytes # (auto) 0.5 10 ^3/uL (0-1.3); Neutrophils # (auto) 8.8 10 ^3/uL (1.6-8.6); Neutrophils % (auto) 89.4 % (37.0-80.0); Platelet Count (auto) 223 10^3/uL (140-450); Red Blood Cells 4.36 10^6/uL (4.0-5.20); Red Cell Distribution Width 13.3 % (11.8-14.3); White Blood Cell 9.8 10^3/uL (4.4-10.8)
[2020-10-14] MEDS: InsuLIN REG 1unit/0.01ml Soln (100units/ml) SC SCH ×4 (06:42→21:58)
[2020-10-14 06:58] LABS: Albumin 1.7 g/dL (3.4-5.0); Calcium 7.8 mg/dL (8.5-10.1); Potassium 3.5 mmol/L (3.5-5.1)
[2020-10-14 07:02] LABS: BUN/Creatinine Ratio 22.4; Bilirubin, Total 0.5 mg/dL (0.2-1.0); Total Protein 6.4 g/dL (6.4-8.2)
[2020-10-14] MEDS: ENOXAPARIN SOD 80 MG/0.8ML SYRINGE SC SCH ×2 (07:13→17:20)
--- NOTE | 2020-10-14 07:25 | NUR ---
Opening Shift Note Assumed care of patient, awake and alert. No s/s of SOB or pain. Patient on 60% hi-flow oxygen. Patient's hinds is patent, free of kinks and hung below the bladder. Bed is locked in lowest position, 2 side rails up and call light within reach. Instructed on POC and to call for assist PRN, will continue to monitor for changes Q1hr and PRN.
--- NOTE | 2020-10-14 07:32 | NUR ---
CLOSING NOTE- NOC SHIFT PATIENT STABLE DURING EQUIPMENT INSPECTOR. PATIENT INSTRUCTED TO LAY PRONE FOR BETTER SAT O2, CURRENTLY AT 79% ON 60L HIGH FLOW. NO S/SX OF DISTRESS, SOB OR PAIN.
[2020-10-14 08:35] VITALS: BP 150/62
[2020-10-14 08:47] VITALS: BP 101/44
[2020-10-14] MEDS: FUROSEMIDE 40 MG/4 ML VIAL IV SCH (09:12)
[2020-10-14] MEDS: OSELTAMIVIR 75 MG CAP PO SCH (09:30)
[2020-10-14] MEDS: CHOLECALCIFEROL (VITD3) 2,000 UNIT CAP PO SCH (09:30)
[2020-10-14] MEDS: ZINC SULFATE 220mg CAP or TAB PO SCH (09:30)
[2020-10-14] MEDS: DexAMETHasone SOD PHOS 10MG/1ML VIAL INJ IV SCH (09:30)
[2020-10-14] MEDS: guaiFENesin-DM 100/10mg/5ml SYR PO PRN ×2 (09:30→14:34)
[2020-10-14] MEDS: ASPirin 81 mg TAB PO SCH (09:31)
[2020-10-14] MEDS: ASCORBIC ACID 1,000 MG TAB PO SCH (09:31)
[2020-10-14] MEDS: POTASSIUM CHL 20 Meq TABLET PO SCH (09:31)
--- NOTE | 2020-10-14 10:35 | NUR ---
Nutrition Assessment Notes Please refer to link for full assessment notes. Est Energy needs: 7282-0518 kcals (17-20 kcal/kgBW) Est Protein needs: 84-92 gms/day (1.0-1.1 gm/kgBW) Will continue to monitor and reassess prn. Addendum: 10/14/20 at [address] Amended: Links added. Addendum: 10/14/20 at [address] Amend dietary recommendation as follows: Suggest a Regular diet instead of a CCHO 45g diet noted under Comments
[2020-10-14 13:14] VITALS: BP 106/56
[2020-10-14 17:28] VITALS: BP 122/56
--- NOTE | 2020-10-14 18:45 | NUR ---
Respiratory note: RECEIVED PT ON HFNC UNIT. UNIT CONNECTED TO RED OUTLET, MEDICAL AIR AND O2 SOURCE ALARMS ARE SET AND AUDIBLE. AMBU BAG AND MASK AT BEDSIDE. BS ARE DIMINISHED T/O. NO CHANGES MADE. PT ASKING TO GO ON BED FORD. RN NOTIFIED. WILL CONTINUE TO MONITOR.
--- NOTE | 2020-10-14 19:00 | NUR ---
OPENING NOTE- NOC SHIFT RECEIVED REPORT FROM DAY SHIFT NURSE REDDY RN. PATIENT IS IN BED, SAT IS 82% ON HIGH FLOW 60L. INSTRUCTED PATIENT TO LAY PRONE; PATIENT VERBALIZES UNDERSTANDING. PATIENT IS ON CONTINUOUS SAT 02 AND EKG MONITORING. NO S/SX OF DISTRESS.
--- NOTE | 2020-10-14 19:40 | NUR ---
BEDPAN PATIENT USED FORD. SMALL SOFT STOOL. PATIENT SAT O2 AT 77% WHILE USING BEDPAN. SAT O2 RETURNS TO 88% WHEN PATIENT RETURNS TO PRONE POSITION. PATIENT IS COMFORTABLE IN BED.
[2020-10-14 21:09] VITALS: BP 120/66
[2020-10-14 21:12] VITALS: BP 121/44
[2020-10-14] MEDS: ATORVASTATIN 20 MG TAB PO SCH (21:57)
[2020-10-14] MEDS: INSULIN LANTUS (GLARGINE) 1 /0.01ml (100units/ml) SC SCH (22:05)
[2020-10-15] MEDS: PIPERACILLIN-TAZOB 2.25GM 50 ML IV SCH ×5 (00:30→23:54)
[2020-10-15] MEDS: MORPHINE SULF INJ 2 MG/ML SYRINGE 1ML IV PRN (01:07)
--- NOTE | 2020-10-15 01:15 | NUR ---
CONVALESCENT PLASMA PATIENT STATES THAT SHE WOULD LIKE TO SPEAK TO THE DOCTOR BEFORE RECEIVING A SECOND DOSE OF PLASMA.
[2020-10-15] MEDS: ENOXAPARIN SOD 80 MG/0.8ML SYRINGE SC SCH ×2 (05:46→17:00)
[2020-10-15] MEDS: InsuLIN REG 1unit/0.01ml Soln (100units/ml) SC SCH ×4 (05:46→22:00)
[2020-10-15] MEDS: ACCU-CHEK COMFORT CURVE STRIP VI SCH ×4 (05:47→22:11)
[2020-10-15] MEDS: guaiFENesin-DM 100/10mg/5ml SYR PO PRN (05:47)
[2020-10-15] MEDS: ALBUTEROL SULF HFA 90MCG INH 200DOSE IN PRN ×2 (06:40→20:06)
[2020-10-15] MEDS: BUDESONIDE (INHALATION) 180 MCG IH IN SCH ×2 (06:40→20:06)
--- NOTE | 2020-10-15 06:46 | NUR ---
BOWEL MOVEMENT. SMALL SOFT BM. WASHED WITH SOAP AND WATER, PAT DRY. APPLIED SKIN BARRIER CREAM. PATIENT BACK TO LAYING ON SIDED.
--- NOTE | 2020-10-15 07:00 | NUR ---
OPENING SHIFT NOTE RECEIVED REPORT ON THE PATIENT. AWAKE LYING IN BED. PATIENT SHOWS NO SIGNS OF DISTRESS. PATIENT WAS SATING AT 79%. RESPIRATORY CAME AND ADJUSTED HER MASK. PATIENT SATING AT 82%. DISCUSSED THE PLAN OF CARE WITH THE PATIENT. BED IN LOWEST POSITION, SIDE RAILS UP X2, AND THE CALL LIGHT IS WITHIN REACH.
[2020-10-15] MEDS: POTASSIUM CHL 20 Meq TABLET PO SCH (08:44)
[2020-10-15] MEDS: ZINC SULFATE 220mg CAP or TAB PO SCH (08:44)
[2020-10-15] MEDS: FUROSEMIDE 40 MG/4 ML VIAL IV SCH (08:44)
[2020-10-15] MEDS: DexAMETHasone SOD PHOS 10MG/1ML VIAL INJ IV SCH (08:44)
[2020-10-15] MEDS: ASPirin 81 mg TAB PO SCH (08:44)
[2020-10-15] MEDS: ASCORBIC ACID 1,000 MG TAB PO SCH (08:45)
[2020-10-15] MEDS: CHOLECALCIFEROL (VITD3) 2,000 UNIT CAP PO SCH (08:45)
[2020-10-15 08:57] VITALS: BP 120/58
--- NOTE | 2020-10-15 10:27 | NUR ---
PATIENT IS REFUSING ALL HER MEDICATIONS STATING "I DON'T WANT ANYTHING NOW".
[2020-10-15] MEDS ORDERED: LORazepam 2MG/ML-1ML VIAL ONE (12:11)
[2020-10-15] MEDS ORDERED: LORazepam 2MG/ML-1ML VIAL IV PRN ×2 (12:15)
[2020-10-15] MEDS ORDERED: LORazepam 2MG/ML-1ML VIAL IM ONE (12:15)
[2020-10-15 13:00] VITALS: BP 126/50
[2020-10-15] MEDS: ACETAMINOPHEN 500 MG TAB PO PRN (15:45)
[2020-10-15 17:00] VITALS: BP 126/52
[2020-10-15 18:10] VITALS: BP 126/52
--- NOTE | 2020-10-15 19:30 | NUR ---
OPENING SHIFT NOTE Assumed care of patient who is A&O x4. Currently on BiPap at 100% fio2. Patient reports SOB at rest and on exertion, denies pain at this time. Buckley catheter in place and patent. Tubing is free from kinks and collection bag is hung below the level of the bladder. Midline in left upper arm. Intact and patent. Flushed with 10ml NS. Bed is in low locked position with side rails up x2. Call light is within reach and patient encouraged to call for assistance when needed. Will continue to monitor for changes PRN.
[2020-10-15 20:00] VITALS: BP 146/66
[2020-10-15 21:30] VITALS: BP 146/66
--- NOTE | 2020-10-15 21:30 | NUR ---
TEMPERATURE Patients axillary temperature is 100.3. Cooling measures applied and Tylenol administered. Will reassess.
--- NOTE | 2020-10-15 21:35 | NUR ---
MEDICATIONS Scheduled medications administered. Patient took one Lipitor tablet (20mg) and refused second tablet due to SOB while of Cpap. Desaturated to 66% Mask replaced and spo2 increase to 86% Will continue to monitor for changes PRN.
[2020-10-15] MEDS: DOXYCYCLINE 100 MG TAB/CAP PO SCH (22:11)
[2020-10-15] MEDS: ATORVASTATIN 20 MG TAB PO SCH (22:11)
[2020-10-15] MEDS: INSULIN LANTUS (GLARGINE) 1 /0.01ml (100units/ml) SC SCH (22:13)
--- NOTE | 2020-10-16 00:30 | NUR ---
DESATURATION Patient Cpap became disconnected. Patient desaturated to 33% on RA and is very anxious and crying, "I can't breathe". Tubing reconnected immediately and this RN stayed at patients bedside to ensure recovery. Spo2 increased to 85%. Will continue to monitor for changes.
[2020-10-16 05:16] VITALS: BP 122/57
[2020-10-16] MEDS: PIPERACILLIN-TAZOB 2.25GM 50 ML IV SCH ×3 (06:51→17:43)
[2020-10-16] MEDS: ACCU-CHEK COMFORT CURVE STRIP VI SCH ×4 (06:51→22:18)
[2020-10-16] MEDS: ENOXAPARIN SOD 80 MG/0.8ML SYRINGE SC SCH ×2 (06:51→17:43)
[2020-10-16] MEDS: InsuLIN REG 1unit/0.01ml Soln (100units/ml) SC SCH ×4 (06:52→22:28)
--- NOTE | 2020-10-16 07:00 | NUR ---
OPENING SHIFT NOTE RECEIVED REPORT ON THE PATIENT. AWAKE LYING IN BED. PATIENT SHOWS NO SIGNS OF DISTRESS. DISCUSSED THE PLAN OF CARE WITH THE PATIENT. BED IN LOWEST POSITION, SIDE RAILS UP X2, AND THE CALL LIGHT IS WITHIN REACH.
[2020-10-16 09:00] VITALS: BP 113/58
[2020-10-16] MEDS: DOXYCYCLINE 100 MG TAB/CAP PO SCH ×2 (10:00→22:18)
[2020-10-16] MEDS: DexAMETHasone SOD PHOS 10MG/1ML VIAL INJ IV SCH (10:00)
[2020-10-16] MEDS: POTASSIUM CHL 20 Meq TABLET PO SCH (10:00)
[2020-10-16] MEDS: ASCORBIC ACID 1,000 MG TAB PO SCH (10:00)
[2020-10-16] MEDS: FUROSEMIDE 40 MG/4 ML VIAL IV SCH (10:00)
[2020-10-16] MEDS: BUDESONIDE (INHALATION) 180 MCG IH IN SCH ×2 (10:00→21:35)
[2020-10-16] MEDS: ZINC SULFATE 220mg CAP or TAB PO SCH (10:00)
[2020-10-16] MEDS: ASPirin 81 mg TAB PO SCH (10:00)
[2020-10-16] MEDS: CHOLECALCIFEROL (VITD3) 2,000 UNIT CAP PO SCH (10:00)
[2020-10-16 12:27] LABS: Anion Gap 8 (5-15); BUN/Creatinine Ratio 22.4; Blood Urea Nitrogen 24 mg/dL (7-18); Calcium 7.9 mg/dL (8.5-10.1); Carbon Dioxide 25 mmol/L (21-32); Chloride 111 mmol/L (98-107); GFR African American 66 mL/min; GFR Non-African American 55 mL/min; Glucose 148 mg/dL (74-106); Potassium 3.5 mmol/L (3.5-5.1); Sodium 144 mmol/L (136-145)
[2020-10-16 12:52] LABS: Basophils # (auto) 0 10 ^3/uL (0-0.2); Eosinophils # (auto) 0 10 ^3/uL (0-0.8); Eosinophils % (auto) 0.2 % (0.0-7.0); Hematocrit 40.2 % (36.0-46.0); Hemoglobin 13.2 g/dL (12.2-16.2); Lymphocytes # (auto) 0.6 10 ^3/uL (0.4-5.4); Lymphocytes % (auto) 3.2 % (10.0-50.0); Mean Corpuscular Hemoglobin 30.2 pg (28.0-32.0); Mean Corpuscular Volume 91.6 fL (80.0-100.0); Monocytes # (auto) 0.6 10 ^3/uL (0-1.3); Monocytes % (auto) 3.2 % (0.0-12.0); Neutrophils # (auto) 16.8 10 ^3/uL (1.6-8.6); Neutrophils % (auto) 93.4 % (37.0-80.0); Platelet Count (auto) 206 10^3/uL (140-450); Red Blood Cells 4.39 10^6/uL (4.0-5.20); Red Cell Distribution Width 13.5 % (11.8-14.3)
[2020-10-16 13:00] VITALS: BP 132/73
[2020-10-16 17:00] VITALS: BP 132/55
[2020-10-16] MEDS: ALBUTEROL SULF HFA 90MCG INH 200DOSE IN PRN (18:37)
--- NOTE | 2020-10-16 20:00 | NUR ---
OPENING SHIFT NOTE Assumed care of patient who is A&O x4. Currently on BiPap at 100% FIO2. No distress noted at this time. Patient denies pain. Midline in left upper arm is intact and patent. Flushed with 10l NS. Buckley catheter is in place and patent. Tubing is free from kinks and collection bag is hung below the level of the bladder. Draining francisco colored urine. Bed is in low locked position with side rails up x2. Call light is within reach and patient encouraged to call for assistance when needed. Will continue to monitor for changes PRN.
--- NOTE | 2020-10-16 22:15 | NUR ---
Patient given water. Drank 240ml and tolerated well.
[2020-10-16] MEDS: ATORVASTATIN 20 MG TAB PO SCH (22:17)
[2020-10-16] MEDS: INSULIN LANTUS (GLARGINE) 1 /0.01ml (100units/ml) SC SCH (22:26)
[2020-10-17] MEDS: PIPERACILLIN-TAZOB 2.25GM 50 ML IV SCH ×3 (00:17→12:28)
[2020-10-17] MEDS: ACETAMINOPHEN 500 MG TAB PO PRN (01:12)
--- NOTE | 2020-10-17 01:12 | NUR ---
TEMPERATURE Axillary temperature measured and is 101.6. Cooling measures applied and Tylenol administered as ordered. Patient tolerated well. Will reassess.
--- NOTE | 2020-10-17 01:14 | NUR ---
PATIENT CARE Patient had one moderately sized soft dark green stool. Patient cleansed and repositioned. Tolerated well.
[2020-10-17 05:00] VITALS: BP 103/44
[2020-10-17] MEDS: ALBUTEROL SULF HFA 90MCG INH 200DOSE IN PRN ×2 (06:08→22:35)
[2020-10-17] MEDS: BUDESONIDE (INHALATION) 180 MCG IH IN SCH ×2 (06:08→21:11)
[2020-10-17] MEDS: ENOXAPARIN SOD 80 MG/0.8ML SYRINGE SC SCH ×2 (06:16→18:11)
--- NOTE | 2020-10-17 06:16 | NUR ---
IV removal IV to right AC DC'd with clean sterile technique, catheter fully intact. Pressure dressing applied to site. Patient tolerated well.
[2020-10-17] MEDS: InsuLIN REG 1unit/0.01ml Soln (100units/ml) SC SCH ×3 (06:49→23:59)
[2020-10-17] MEDS: ACCU-CHEK COMFORT CURVE STRIP VI SCH ×3 (06:50→23:40)
--- NOTE | 2020-10-17 07:30 | NUR ---
Opening Shift Note Assumed patient care from NOC RN. Patient currently on BiPap. Patient shows no signs of distress at this time. Patient is laying on left side, unable to prone fully at this time. SpO2 88-93% at this time. Safety precautions in place, will continue to monitor q1hr and PRN.
[2020-10-17 08:00] VITALS: BP 122/51
[2020-10-17] MEDS: ZINC SULFATE 220mg CAP or TAB PO SCH (10:00)
[2020-10-17] MEDS: DexAMETHasone SOD PHOS 10MG/1ML VIAL INJ IV SCH (10:23)
[2020-10-17] MEDS: ASPirin 81 mg TAB PO SCH (10:23)
[2020-10-17] MEDS: POTASSIUM CHL 20 Meq TABLET PO SCH (10:23)
[2020-10-17] MEDS: ASCORBIC ACID 1,000 MG TAB PO SCH (10:24)
[2020-10-17] MEDS: FUROSEMIDE 40 MG/4 ML VIAL IV SCH (10:24)
[2020-10-17] MEDS: DOXYCYCLINE 100 MG TAB/CAP PO SCH (10:24)
[2020-10-17] MEDS: CHOLECALCIFEROL (VITD3) 2,000 UNIT CAP PO SCH (10:24)
--- NOTE | 2020-10-17 11:38 | NUR ---
Nutrition Followup Notes Wt: 92.5 kg Pt is positive for COVID, in isolation. pt is currently on CCHO 60 gm diet with inadequate PO of < 50% x 3 per RN doc Est energy needs 3189-4273 kcal (20-23 kcal/kg BW 81.3kg) Est protein needs 81-89g (1.0-1.1g/kg BW r/t elev RFT hypoalb) Will monitor and reassess prn. LABS: GLU 148 H BUN 24 H CREAT 1.07 H CA 7.9 L, ALB 1.7 L GI: Pt had 1 BM today per RN doc. BS: 13 mod risk. Refer to wound assessment report for further details PES: Altered nutrition related labs aeb pt with elevated RFTs, hyperglycemia, elevated HgbA1C, hypoalb r/t current and chronic medical condition Inadequate oral intake aeb pt with 16% avg po intake per Rn note r/t current medical condition Comments: Will Continue to monitor po intake, labs, skin. F/u mod 3-5 days Rec: 1) Consider adding Glucerna 1 carton tid 2) consider alternate nutrition if pt unable to tolerate po intake 3) continue current plan of care
[2020-10-17 12:00] VITALS: BP 127/56
[2020-10-17] MEDS ORDERED: TPN PER PHARMACY 0 ML IV SCH (13:45)
[2020-10-17] MEDS ORDERED: MEROPENEM 1GM IVPB 100 ML IV SCH (14:00)
[2020-10-17 16:00] VITALS: BP 108/44
[2020-10-17] MEDS ORDERED: AMINO ACID INFUSION IN D5W 2,000 ML IV NR (20:00)
[2020-10-17 21:16] VITALS: BP 114/55
[2020-10-17] MEDS: INSULIN LANTUS (GLARGINE) 1 /0.01ml (100units/ml) SC SCH (21:24)
[2020-10-17] MEDS: MEROPENEM 1GM IVPB 100 ML IV SCH (21:31)
[2020-10-17] MEDS: ATORVASTATIN 20 MG TAB PO SCH (21:32)
[2020-10-17] MEDS: LINEZOLID 600MG/300ML 300 ML IV SCH (23:40)
[2020-10-18] MEDS ORDERED: DEXTROSE (50%) 50ML SYRG IV SCH
[2020-10-18] MEDS: MORPHINE SULF INJ 2 MG/ML SYRINGE 1ML IV PRN ×2 (02:08→20:50)
[2020-10-18 05:00] VITALS: BP 105/54
[2020-10-18 05:24] LABS: Basophils # (auto) 0 10 ^3/uL (0-0.2); Basophils % (auto) 0.1 % (0.0-2.0); Eosinophils # (auto) 0 10 ^3/uL (0-0.8); Hemoglobin 11.8 g/dL (12.2-16.2); Lymphocytes # (auto) 0.5 10 ^3/uL (0.4-5.4); Mean Corpuscular Hemoglobin 29.9 pg (28.0-32.0); Mean Corpuscular Hgb Conc. 32.7 g/dL (32.0-36.0); Mean Corpuscular Volume 91.2 fL (80.0-100.0); Monocytes # (auto) 0.4 10 ^3/uL (0-1.3); Monocytes % (auto) 3.1 % (0.0-12.0); Neutrophils # (auto) 12.3 10 ^3/uL (1.6-8.6); Neutrophils % (auto) 92.8 % (37.0-80.0); Platelet Count (auto) 182 10^3/uL (140-450); Red Blood Cells 3.95 10^6/uL (4.0-5.20); Red Cell Distribution Width 13.6 % (11.8-14.3); White Blood Cell 13.3 10^3/uL (4.4-10.8)
[2020-10-18 05:40] LABS: Albumin 1.4 g/dL (3.4-5.0); Calcium 7.9 mg/dL (8.5-10.1); Potassium 3.4 mmol/L (3.5-5.1)
[2020-10-18 05:43] LABS: BUN/Creatinine Ratio 26.6; Bilirubin, Total 0.5 mg/dL (0.2-1.0); Total Protein 6.3 g/dL (6.4-8.2)
[2020-10-18 05:51] LABS: Magnesium 2.4 mg/dL (1.6-2.6); Phosphorus 2.7 mg/dL (2.5-4.90); Pre Albumin 6.6 mg/dL (20.0-40.0)
[2020-10-18] MEDS: BUDESONIDE (INHALATION) 180 MCG IH IN SCH ×2 (06:02→06:24)
--- NOTE | 2020-10-18 06:24 | NUR ---
Respiratory note: PT SEEN AT THIS TIME, MDI'S NOT GIVEN AT THIS TIME DUE TO PATIENT SPO2 BEING LOW.
[2020-10-18] MEDS: ACCU-CHEK COMFORT CURVE STRIP VI SCH ×4 (07:03→20:49)
[2020-10-18] MEDS: MEROPENEM 1GM IVPB 100 ML IV SCH ×3 (07:03→14:01)
[2020-10-18] MEDS: ENOXAPARIN SOD 80 MG/0.8ML SYRINGE SC SCH ×2 (07:03→17:47)
[2020-10-18] MEDS: InsuLIN REG 1unit/0.01ml Soln (100units/ml) SC SCH ×3 (07:15→17:53)
--- NOTE | 2020-10-18 07:30 | NUR ---
Opening Shift Note Assumed care of patient, upon entering patient's room, found patient to be resting with eyes closed. Patient currently on Bi-pap. No S/S of distress/SOB or pain. Bed is low, locked with 2x side rails up. Call light is within reach. Instructed on POC and to call for assist PRN, will continue to monitor for changes Q1hr and PRN.
--- NOTE | 2020-10-18 07:40 | NUR ---
Patient lying in bed, awake and alert, no s/s of distress. Call light within reach. Care endorsed to dayshift RN.
[2020-10-18 09:00] VITALS: BP 109/49
[2020-10-18] MEDS: ASPirin 81 mg TAB PO SCH ×2 (09:33→09:54)
[2020-10-18] MEDS: LINEZOLID 600MG/300ML 300 ML IV SCH ×2 (09:33→20:49)
[2020-10-18] MEDS: DexAMETHasone SOD PHOS 10MG/1ML VIAL INJ IV SCH (09:33)
[2020-10-18] MEDS: FUROSEMIDE 40 MG/4 ML VIAL IV SCH (09:33)
[2020-10-18] MEDS: ZINC SULFATE 220mg CAP or TAB PO SCH ×2 (09:34→09:54)
[2020-10-18] MEDS: CHOLECALCIFEROL (VITD3) 2,000 UNIT CAP PO SCH ×2 (09:34→09:55)
[2020-10-18] MEDS: POTASSIUM CHL 20 Meq TABLET PO SCH ×2 (09:34→09:55)
--- NOTE | 2020-10-18 11:24 | NUR ---
Nutrition Followup/Consult Notes Wt: 92.5 kg Pt is positive for COVID, in isolation, is now a Consult for TPN. Pt is scheduled to start TPN @ 49 ml/hr, providing 640 kcals, 50g protein and 440 NPCs. Scheduled PN support meets 34-39% of est energy needs and 56-62% of est protein needs. Per notes pt is with no s/s of distress, pain. Note Est energy needs 0404-7375 kcal (20-23 kcal/kg BW 81.3kg) Est protein needs 81-89g (1.0-1.1g/kg BW r/t elev RFT hypoalb) Will monitor and reassess prn. LABS: GLU 275 H BUN 29 H CREAT 1.09 H CA 7.9 L, ALB 1.4 L GI: Pt had no BM today per RN doc. BS: 13 mod risk. Refer to wound assessment report for further details PES: Altered nutrition related labs aeb pt with elevated RFTs, hyperglycemia, elevated HgbA1C, hypoalb r/t current and chronic medical condition Inadequate oral intake aeb pt with 16% avg po intake per Rn note r/t current medical condition Comments: Will Continue to monitor po intake, labs, skin. F/u mod 3-5 days Rec: 1) Consider adding Glucerna 1 carton tid 2) consider alternate nutrition if pt unable to tolerate po intake 3) continue current plan of care
--- NOTE | 2020-10-18 11:40 | NUR ---
at bedside Dr. Bingham at bedside. MD aware of patients refusal of morning PO medications. MD aware of this mornings lab values. New orders received for potassium replacement. Orders read back to verify. see orders.
[2020-10-18] MEDS ORDERED: POTASSIUM EFFERVESENT TAB 25 MEQ PO ONE (12:15)
[2020-10-18 12:56] VITALS: BP 108/56
[2020-10-18 17:00] VITALS: BP 100/34
[2020-10-18] MEDS ORDERED: PPN PER PHARMACY IV NR ×10 (20:00)
[2020-10-18] MEDS: ATORVASTATIN 20 MG TAB PO SCH (20:49)
[2020-10-18] MEDS: INSULIN LANTUS (GLARGINE) 1 /0.01ml (100units/ml) SC SCH (21:18)
[2020-10-18 22:08] VITALS: BP 130/65
[2020-10-19] MEDS: InsuLIN REG 1unit/0.01ml Soln (100units/ml) SC SCH ×4 (01:05→17:54)
[2020-10-19 05:00] VITALS: BP 112/49
[2020-10-19 05:45] LABS: Calcium 7.9 mg/dL (8.5-10.1); Potassium 3.5 mmol/L (3.5-5.1)
[2020-10-19 05:51] LABS: Albumin 1.4 g/dL (3.4-5.0); BUN/Creatinine Ratio 32.5; Bilirubin, Total 0.5 mg/dL (0.2-1.0); Magnesium 2.5 mg/dL (1.6-2.6); Phosphorus 2.4 mg/dL (2.5-4.90); Total Protein 6.1 g/dL (6.4-8.2)
[2020-10-19] MEDS: MEROPENEM 1GM IVPB 100 ML IV SCH ×3 (06:32→21:56)
[2020-10-19] MEDS: ACCU-CHEK COMFORT CURVE STRIP VI SCH ×3 (06:33→17:54)
[2020-10-19] MEDS: ENOXAPARIN SOD 80 MG/0.8ML SYRINGE SC SCH ×2 (06:33→17:54)
[2020-10-19] MEDS: MORPHINE SULF INJ 2 MG/ML SYRINGE 1ML IV PRN ×4 (06:40→22:35)
--- NOTE | 2020-10-19 07:10 | NUR ---
Patient lying in bed, awake and alert, no s/s of distress. Call light within reach. Care endorsed to dayshift RN.
--- NOTE | 2020-10-19 07:30 | NUR ---
Opening Shift Note Assumed care of patient, upon entering patient's room, found patient to be resting with eyes closed. Patient currently on Bi-pap 100% FiO2. No S/S of distress/SOB or pain. Bed is low, locked with 2x side rails up. Call light is within reach. Instructed on POC and to call for assist PRN, will continue to monitor for changes Q1hr and PRN.
[2020-10-19 09:00] VITALS: BP 115/48
[2020-10-19] MEDS: BUDESONIDE (INHALATION) 180 MCG IH IN SCH ×2 (09:34→19:02)
[2020-10-19] MEDS: ZINC SULFATE 220mg CAP or TAB PO SCH (10:00)
[2020-10-19] MEDS: ASPirin 81 mg TAB PO SCH (10:00)
[2020-10-19] MEDS: CHOLECALCIFEROL (VITD3) 2,000 UNIT CAP PO SCH (10:00)
[2020-10-19] MEDS: FUROSEMIDE 40 MG/4 ML VIAL IV SCH (10:36)
[2020-10-19] MEDS: POTASSIUM CHL 20 Meq TABLET PO SCH (10:37)
[2020-10-19] MEDS: LINEZOLID 600MG/300ML 300 ML IV SCH (10:37)
[2020-10-19] MEDS: DexAMETHasone SOD PHOS 10MG/1ML VIAL INJ IV SCH (10:38)
[2020-10-19 13:00] VITALS: BP 122/50
[2020-10-19 17:00] VITALS: BP 138/80
[2020-10-19] MEDS: ALBUTEROL SULF HFA 90MCG INH 200DOSE IN PRN (19:02)
--- NOTE | 2020-10-19 19:02 | NUR ---
RECEIVED PT ON BIPAP S/N [id number], BIPAP CONNECTED TO RED OUTLET AND O2 SOURCE. ALARMS ARE SET AND AUDIBLE. AMBU BAG/PEEP VALVE, AND MASK AT BEDSIDE. PT ON (M) MASK, REDNESS NOTED, NO SKIN TEAR NOTED. NO CHANGES MADE WILL CONTINUE TO MONITOR. MDI AND DPI GIVEN WITHOUT ADVERSE REACTION.
[2020-10-19] MEDS ORDERED: PPN PER PHARMACY IV NR ×9 (20:00)
[2020-10-19] MEDS: ATORVASTATIN 20 MG TAB PO SCH (21:57)
[2020-10-19] MEDS: PANTOPRAZOLE 40 MG/10 ML VIAL INJ IV SCH (21:57)
[2020-10-19 22:00] VITALS: BP 132/63
[2020-10-19] MEDS: INSULIN LANTUS (GLARGINE) 1 /0.01ml (100units/ml) SC SCH (22:03)
[2020-10-20] MEDS: LINEZOLID 600MG/300ML 300 ML IV SCH ×3 (00:01→23:02)
[2020-10-20] MEDS: InsuLIN REG 1unit/0.01ml Soln (100units/ml) SC SCH ×4 (00:03→18:00)
[2020-10-20] MEDS: ACCU-CHEK COMFORT CURVE STRIP VI SCH ×4 (00:05→18:00)
--- NOTE | 2020-10-20 00:05 | NUR ---
AT BEDSIDE FOR ROUTINE BIPAP CHECK. NO CHANGES MADE. RN JOSE AT BEDSIDE. WILL CONTINUE TO MONITOR.
--- NOTE | 2020-10-20 01:40 | NUR ---
PATIENT OXYGEN DESATTED DOWN TO LOW 63%. RESPIRATORY WAS PAGED STAT. CHANGE OF POSITION WAS DONE. DEEP BREATHS WERE ATTEMPTED WELL BUT WITH NO IMPROVEMENT. UPON ARRIVAL RT WAS ABLE TO GET HER OXYGEN STATUS UP TO 85%. AN ABG WAS DRAWN WELL. WILL CLOSELY MONITOR. Addendum: 10/20/20 at 0158 by FRANCISCO JAVIER MOSELEY RN PATIENT IS ON CONTINUOUS BIPAP AT 100% FIO2.
--- NOTE | 2020-10-20 02:18 | NUR ---
SHARIF COURTNEY NOTIFIED OF PATIENT ABG RESULTS. WILL CONTINUE TO MONITOR AND NOTIFY OF ANY CHANGES.
[2020-10-20 05:00] VITALS: BP 156/78
[2020-10-20] MEDS: MEROPENEM 1GM IVPB 100 ML IV SCH ×2 (06:00→14:00)
[2020-10-20] MEDS: ALBUTEROL SULF HFA 90MCG INH 200DOSE IN PRN ×2 (06:02→20:06)
[2020-10-20] MEDS: BUDESONIDE (INHALATION) 180 MCG IH IN SCH ×2 (06:02→20:06)
--- NOTE | 2020-10-20 06:28 | NUR ---
PATIENT PULLED OUT IV TO RIGHT FOREARM WHILE POSITION CHANGING. IV CATHETER TIP WAS STILL INTACT.
--- NOTE | 2020-10-20 06:30 | NUR ---
PATIENT OXYGEN SATURATION IS AT 81%. DURING THIS TIME RT CAME AROUND DOING HER ROUNDS. RT PLACED THEIR PULSE OX ON AND RECEIVED A READING OF 93%. I USED A WINIFRED MAP MACHINE WELL THE PULSE OX ON THE HEART MONITOR AND BOTH WERE READING AT 81%. WILL NOTE TO HAVE OXYGEN SATURATION CHECKED WITH PORTABLE PULSE OX IF STATUS IS IN QUESTION.
--- NOTE | 2020-10-20 06:35 | NUR ---
IV insertion IV access obtained, via clean sterile technique by inserting 22 gauge catheter at LEFT FOREARM after 1 attempt. IV secured properly. No trauma to site. Patient tolerated well.
[2020-10-20 06:36] LABS: Potassium 3.3 mmol/L (3.5-5.1)
[2020-10-20 06:53] LABS: Albumin 1.6 g/dL (3.4-5.0); BUN/Creatinine Ratio 37.6; Bilirubin, Total 0.6 mg/dL (0.2-1.0); Calcium 8.1 mg/dL (8.5-10.1); Magnesium 2.6 mg/dL (1.6-2.6); Phosphorus 2.9 mg/dL (2.5-4.90); Total Protein 6.5 g/dL (6.4-8.2)
[2020-10-20] MEDS: ENOXAPARIN SOD 80 MG/0.8ML SYRINGE SC SCH ×2 (06:57→18:00)
--- NOTE | 2020-10-20 07:30 | NUR ---
Opening Shift Note Assuming care of patient at this time. Patient is awake and alert. Patient denies pain. Patient currently on Bipap with fiO2 at 100%.. Bed is locked and lowered with side rails up x2. Instructed patient on the plan of care for today and to call for assistance as needed. Call light within reach. Will continue to round hourly and as needed.
[2020-10-20 09:00] VITALS: BP 130/59
[2020-10-20] MEDS ORDERED: POTASSIUM CHL 20MEQ/100ML 100 ML IV ONE (09:00)
[2020-10-20] MEDS: CHOLECALCIFEROL (VITD3) 2,000 UNIT CAP PO SCH (10:00)
[2020-10-20] MEDS: POTASSIUM CHL 20 Meq TABLET PO SCH (10:00)
[2020-10-20] MEDS: ASPirin 81 mg TAB PO SCH (10:00)
[2020-10-20] MEDS: ZINC SULFATE 220mg CAP or TAB PO SCH (10:00)
[2020-10-20] MEDS: PANTOPRAZOLE 40 MG/10 ML VIAL INJ IV SCH ×2 (10:30→22:43)
[2020-10-20] MEDS: FUROSEMIDE 40 MG/4 ML VIAL IV SCH (10:30)
[2020-10-20] MEDS: DexAMETHasone SOD PHOS 10MG/1ML VIAL INJ IV SCH (10:30)
[2020-10-20 13:00] VITALS: BP 140/71
--- NOTE | 2020-10-20 13:30 | NUR ---
Call to Dr. Levi Spoke to Dr. Levi at this time. Patient is becoming increasingly agitated and is expressing wishes to "." Will administer Ativan at this time and see if patient's demeanor changes.
[2020-10-20] MEDS: LORazepam 2MG/ML-1ML VIAL IV PRN (13:37)
--- NOTE | 2020-10-20 16:00 | NUR ---
Patient requesting DNR status Patient has requested to, "pull the plug." Patient states she is tired of fighting and wants to "just ." Notified Dr. Levi, Dr. Levi has given orders to make patient a DNR with comfort measures only.
--- NOTE | 2020-10-20 16:04 | NUR ---
Patient is unable to get up out of bed today. Patient is on bedrest. Addendum: 10/20/20 at 1605 by CHEN HEADLEY RN RN Amended: Links added.
--- NOTE | 2020-10-20 16:30 | NUR ---
Spoke to son Call to son at this time to inform of patient's code status. Notified son that patient is requesting to remove Bipap at this time and does not want to wait for family to arrive. Asked son if this RN can have patient's 's information, however, son states that he will call and update father.
[2020-10-20 17:00] VITALS: BP 139/80
[2020-10-20] MEDS: MORPHINE SULF INJ 2 MG/ML SYRINGE 1ML IV PRN (17:00)
--- NOTE | 2020-10-20 17:30 | NUR ---
Refusing Medications Patient is refusing medications at this time. Patient does not wish to have scheduled 1800 medications or accucheck scheduled for this time.
--- NOTE | 2020-10-20 18:00 | NUR ---
Family at bedside Family at bedside discussing plan of care with patient and this RN. Daughter, son, and visited. Patient is now agreeable to wear bipap, however, patient is still requesting to be a DNR.
--- NOTE | 2020-10-20 18:45 | NUR ---
Convalescent Plasma Patient's family is requesting to have convalescent plasma, second dose, administered to patient that she initially refused.
--- NOTE | 2020-10-20 19:22 | NUR ---
Closing Shift Note Patient resting in bed. No distress noted. Report given. Will endorse care to the cage shift manager RN.
[2020-10-20] MEDS ORDERED: PPN PER PHARMACY IV NR ×9 (20:00)
[2020-10-20 21:00] VITALS: BP 151/81
[2020-10-20] MEDS: INSULIN LANTUS (GLARGINE) 1 /0.01ml (100units/ml) SC SCH (22:43)
[2020-10-20] MEDS: ATORVASTATIN 20 MG TAB PO SCH (23:00)
[2020-10-21] VITALS (33 sets, daily range): BP systolic 76–185; BP diastolic 46–114
[2020-10-21] MEDS: MEROPENEM 1GM IVPB 100 ML IV SCH ×3 (00:01→23:12)
--- NOTE | 2020-10-21 00:03 | NUR ---
ASSUMED CARE OF PATIENT. NO SIGNS OF DISTRESS AT THIS TIME/
[2020-10-21] MEDS: ACCU-CHEK COMFORT CURVE STRIP VI SCH ×4 (00:18→23:13)
[2020-10-21] MEDS: InsuLIN REG 1unit/0.01ml Soln (100units/ml) SC SCH ×4 (00:18→22:59)
--- NOTE | 2020-10-21 00:30 | NUR ---
PATIENT SATURATION 75%, UPON ASSESSING SHE STATES "I HAVE SO MUCH PAIN, I NEED MORPHINE" IMPLEMENTED RELAXATION TECHNIQUES AND ADMINISTERED MORPHINE PER PROTOCOL. OXYGEN SATURATION NOW AT 85% AT THIS TIME Addendum: 10/21/20 at 0236 by REINALDO GELLER RN RN OXYGEN SATURATION
[2020-10-21] MEDS: MORPHINE SULF INJ 2 MG/ML SYRINGE 1ML IV PRN ×2 (05:09→09:40)
[2020-10-21] MEDS: ENOXAPARIN SOD 80 MG/0.8ML SYRINGE SC SCH (05:09)
[2020-10-21] MEDS: BUDESONIDE (INHALATION) 180 MCG IH IN SCH ×2 (06:48→22:00)
[2020-10-21] MEDS: ALBUTEROL SULF HFA 90MCG INH 200DOSE IN PRN (06:49)
[2020-10-21 07:13] LABS: Albumin 1.6 g/dL (3.4-5.0); Calcium 8.4 mg/dL (8.5-10.1); Magnesium 2.6 mg/dL (1.6-2.6); Potassium 3.8 mmol/L (3.5-5.1)
[2020-10-21 07:19] LABS: Bilirubin, Total 0.9 mg/dL (0.2-1.0); Phosphorus 2.8 mg/dL (2.5-4.90); Total Protein 6.7 g/dL (6.4-8.2)
[2020-10-21] MEDS: FUROSEMIDE 40 MG/4 ML VIAL IV SCH (08:48)
[2020-10-21] MEDS: PANTOPRAZOLE 40 MG/10 ML VIAL INJ IV SCH ×2 (08:48→23:14)
[2020-10-21] MEDS: DexAMETHasone SOD PHOS 10MG/1ML VIAL INJ IV SCH (08:48)
[2020-10-21] MEDS: LORazepam 2MG/ML-1ML VIAL IV PRN (08:49)
[2020-10-21] MEDS: LINEZOLID 600MG/300ML 300 ML IV SCH ×2 (10:00→23:04)
[2020-10-21] MEDS: ZINC SULFATE 220mg CAP or TAB PO SCH (10:00)
[2020-10-21] MEDS: CHOLECALCIFEROL (VITD3) 2,000 UNIT CAP PO SCH (10:00)
[2020-10-21] MEDS: ASPirin 81 mg TAB PO SCH (10:00)
[2020-10-21] MEDS: POTASSIUM CHL 20 Meq TABLET PO SCH (10:00)
[2020-10-21] MEDS ORDERED: MORPHINE SULF INJ 2 MG/ML SYRINGE 1ML IV PRN (10:45)
[2020-10-21] MEDS ORDERED: LORazepam 2MG/ML-1ML VIAL IV PRN (10:45)
--- NOTE | 2020-10-21 11:02 | NUR ---
Nutrition Followup/Consult Notes Wt: 80.7 kg Pt is positive for COVID, in isolation, pt is still on TPN @ 66 ml/hr, providing 988 kcals, 70g protein and 708 NPCs. TPN support meets 52-61% of est energy needs and 79-86% of est protein needs. Per notes pt is with no s/s of distress, pain. Note Est energy needs 2177-4190 kcal (20-23 kcal/kg BW 81.3kg) Est protein needs 81-89g (1.0-1.1g/kg BW r/t elev RFT hypoalb) Will monitor and reassess prn. LABS: BUN 34H, Creat 1.03H, GLUC 165H, Alb 1.6L, Ca 8.4L GI: Pt had no BM today per RN doc. BS: 13 mod risk. Refer to wound assessment report for further details PES: Altered nutrition related labs aeb pt with elevated RFTs, hyperglycemia, elevated HgbA1C, hypoalb r/t current and chronic medical condition Inadequate oral intake aeb pt with 16% avg po intake per Rn note r/t current medical condition Comments: Will Continue to monitor po intake, labs, skin. F/u 2-3 days Rec: 1) Continue to advance TPN to meet >75% of needs 2) advance diet as medically feasible 3) continue current plan of care
[2020-10-21] MEDS ORDERED: ROCURONIUM 10MG/ML 10ML VIAL IV ONE ×2 (12:28→14:31)
[2020-10-21] MEDS ORDERED: ETOMIDATE (2MG/ML) 20ML VIAL IV ONE ×2 (12:28→14:31)
--- NOTE | 2020-10-21 13:00 | NUR ---
0800 entered room pt resting responds to name, oxygen 80% hr 130, notified r.t et physician. 1200 oxygen 50% bipap hr 146, called rapid response, pt DNR, notified family, son requests all to be done, he stated that was his mom's request. notified physician, dr. edwards came spoke with pt et family, pt to be transferred to ICU to be intubated. 1430 pt taken to ICU, tolerated well et was stable when left unit. pt began to become agitated et anxious when transferred to icu bed. dr. ingram paged, report was given to icu nurse et she resumed care. tele monitor sent back to 113 via tube system. bg 254, insulin given
--- NOTE | 2020-10-21 13:29 | NUR ---
Received report from CE Landaverde Patient being transferred from room 280B. Patient on Bipap, family bedside d/t plan for comfort care but then patient and family changed their minds and she wants to be intubated: NEURO: patient is calm and sleeping at time of reprort, moves all extremities, AO x2 CARDIAC: NS-taching HR 140's, RESP: Bipap 18/10 FIO2 100% GI: TPN 66 ml/hr, BM 10/21/20 : Buckley catheter IV: L upper midline , R forearm 22g
[2020-10-21] MEDS ORDERED: fentaNYL Drip 2500mCg/250mlNS 250 ML IV ONE (14:05)
[2020-10-21] MEDS ORDERED: MIDAZOLAM DRIP 50 mg/50mL 50 ML IV ONE (14:06)
--- NOTE | 2020-10-21 15:46 | NUR ---
Patient intubated Dr. Rosenbaum, RN, RT. ETT 8.0 24" lip Per Dr. Levi orders: Etomidate 20 mg Roocuronium 80 mg Patient intubation without incident. Vent setting AC 16, PEEP 16, TV 450, FIO2 100%B
--- NOTE | 2020-10-21 16:05 | NUR ---
Patients BP 218/112, HR 160's Sedation Versed 15 mg Fentanyl 90 mcg Propofol 5 mcg SPO2 85%, RR
--- NOTE | 2020-10-21 16:15 | NUR ---
RN and RT bedside Vent settings changed, Propofol turned off. BP 156/85, SPO2 77%. Patient suctioned and repositioned for optimal oxygenation.
[2020-10-21] MEDS ORDERED: PROPOFOL 100 ML IV ONE (16:18)
--- NOTE | 2020-10-21 16:45 | NUR ---
RT and RN bedside Patient SPO2 82% Versed 15 mg Fentanyl 90 mg Patient setting changed and patient repositioned without change in SPO2. BP 218/112, then 156/87, then sudden drop to 59/35. Patient started on Levophed, Dr. Levi notified and with orders for Vasopressin.
--- NOTE | 2020-10-21 16:48 | NUR ---
Levophed 10 mcg.
--- NOTE | 2020-10-21 16:48 | NUR ---
Levophed 4 mcg
--- NOTE | 2020-10-21 16:50 | NUR ---
Levophed 30 mcg.
--- NOTE | 2020-10-21 16:50 | NUR ---
Levophed 12 mcg.
--- NOTE | 2020-10-21 16:53 | NUR ---
Levophed 14 mcg
--- NOTE | 2020-10-21 16:55 | NUR ---
Levophed 16 mcg
--- NOTE | 2020-10-21 16:58 | NUR ---
Levophed 16 mcg.
--- NOTE | 2020-10-21 17:00 | NUR ---
Levophed 18 mcg.
--- NOTE | 2020-10-21 17:05 | NUR ---
Levophed at 20 mcg.
--- NOTE | 2020-10-21 17:08 | NUR ---
Levophed 22 mcg
--- NOTE | 2020-10-21 17:23 | NUR ---
RN spoke with Jose to update them on intubated status.
--- NOTE | 2020-10-21 17:24 | NUR ---
Levophed to 30 mcg. SPO2 75 %.
[2020-10-21] MEDS: PROPOFOL 100 ML IV SCH (17:30)
--- NOTE | 2020-10-21 17:45 | NUR ---
RT paged SPO2 68% BP jumped top 185/68, HR 138.
--- NOTE | 2020-10-21 17:52 | NUR ---
Levophed 10 mcg Versed 15 mcg Fentanyl 50 mcg
--- NOTE | 2020-10-21 17:53 | NUR ---
RN called and updated him on patients status at this time.
--- NOTE | 2020-10-21 18:25 | NUR ---
RN received call from Family on speaker phone. Code status changed to DNR. Omi Dyson NP notified of code status change, 2nd RN witness over the phone.
--- NOTE | 2020-10-21 19:00 | NUR ---
Respiratory note: CRITICAL ABG RESULTS REPORTED TO OUTSOLE CUTTER MACHINE AYESHA DARDEN, NO NEW RESPIRATORY ORDERS GIVEN AT THIS TIME. PT WILL REMAIN ON SAME VENT SETTINGS PCV RR 22/18/+10/ 0.75 I-TIME/100% FIO2. RN MADE AWARE, WILL CONTINUE TO MONITOR.
[2020-10-21] MEDS ORDERED: PPN PER PHARMACY IV NR ×8 (20:00)
[2020-10-21] MEDS: MIDAZOLAM DRIP 50 mg/50mL 50 ML IV SCH (22:57)
[2020-10-21] MEDS: INSULIN LANTUS (GLARGINE) 1 /0.01ml (100units/ml) SC SCH (23:01)
[2020-10-21] MEDS: ATORVASTATIN 20 MG TAB PO SCH (23:02)
[2020-10-22] VITALS (93 sets, daily range): BP systolic 63–176; BP diastolic 31–74
--- NOTE | 2020-10-22 03:06 | NUR ---
VENTILATOR ALARMING HIGH MINUTE VENTILATION, ALARMS CHECKED AND VERIFIED. PT'S SPO2 NOTED AT 60%. PT REMOVED FROM VENT AND BAGGED WITH AMBU BAG CONNECTED TO 100% FIO2 WITH PEEP VALVE SET TO PROPER LEVEL BY RT ORTEGA. VENT CONNECTIONS CHECKED, VENT SST'D AND PASSED. PT PLACED BACK ON VENT WITH PREVIOUS SETTINGS. PT SPO2 IMPROVED TO 87%. NO VENT ALARMS ACTIVATED AT THIS TIME. WILL CONTINUE TO MONITOR.
[2020-10-22] MEDS: NOREPINEPHRINE 8 MG/250ML KIT 250 ML IV SCH ×2 (03:36→22:23)
[2020-10-22 05:20] LABS: Calcium 8.3 mg/dL (8.5-10.1); Magnesium 2.3 mg/dL (1.6-2.6)
[2020-10-22 05:26] LABS: Albumin 1.7 g/dL (3.4-5.0); BUN/Creatinine Ratio 35.3; Bilirubin, Total 0.9 mg/dL (0.2-1.0); Phosphorus 2.8 mg/dL (2.5-4.90); Total Protein 6.6 g/dL (6.4-8.2)
[2020-10-22] MEDS: MEROPENEM 1GM IVPB 100 ML IV SCH ×3 (06:00→23:21)
[2020-10-22] MEDS: InsuLIN REG 1unit/0.01ml Soln (100units/ml) SC SCH ×3 (06:08→17:14)
[2020-10-22] MEDS: ACCU-CHEK COMFORT CURVE STRIP VI SCH ×3 (06:09→17:40)
[2020-10-22] MEDS: ALBUTEROL SULF 2.5 MG/0.5ML(0.5%) NEB SOLN NEB PRN ×2 (06:48→22:47)
[2020-10-22] MEDS: BUDESONIDE (INHALATION) 0.5 MG/2 ML NEB NEB SCH ×2 (06:48→22:47)
[2020-10-22] MEDS: POTASSIUM CHL 20 Meq TABLET PO SCH (08:46)
--- NOTE | 2020-10-22 08:55 | NUR ---
VENT CHANGES AT THIS TIME CHANGES ORDERED BY DR. RIVAS. PC RATE 22, PRESSURE 22, 100% FIO2, +12 PEEP. CHANGES MADE BY RT BORGES. WILL CONTINUE TO MONITOR.
--- NOTE | 2020-10-22 10:35 | NUR ---
Respiratory note: DR RIVAS READ BACK CRITICAL ABG VALUES. NO CHANGES ORDERED AT THIS TIME. WILL CONTINUE TO MONITOR PT.
[2020-10-22] MEDS: fentaNYL Drip 2500mCg/250mlNS 250 ML IV SCH ×2 (10:48→15:29)
[2020-10-22] MEDS: ENOXAPARIN SOD 80 MG/0.8ML SYRINGE SC SCH (10:49)
[2020-10-22] MEDS: DexAMETHasone SOD PHOS 10MG/1ML VIAL INJ IV SCH (10:50)
[2020-10-22] MEDS: FUROSEMIDE 40 MG/4 ML VIAL IV SCH (10:50)
[2020-10-22] MEDS: ZINC SULFATE 220mg CAP or TAB PO SCH (10:51)
[2020-10-22] MEDS: PANTOPRAZOLE 40 MG/10 ML VIAL INJ IV SCH ×2 (10:51→21:30)
[2020-10-22] MEDS: LINEZOLID 600MG/300ML 300 ML IV SCH ×2 (10:51→21:30)
[2020-10-22] MEDS: ASPirin 81 mg TAB PO SCH (10:51)
[2020-10-22] MEDS: CHOLECALCIFEROL (VITD3) 2,000 UNIT CAP PO SCH (10:52)
--- NOTE | 2020-10-22 11:00 | NUR ---
UPDATED ON PT'S CURRENT STATUS TALKED WITH DR. RIVAS. ORDERS GIVEN AND TO BE CARRIED OUT. PATIENT REMAINS DNR STATUS AT THIS TIME. WILL CONTINUE CARE.
--- NOTE | 2020-10-22 11:50 | NUR ---
DR. KERNS AT BEDSIDE : ORDERS MD UPDATED ON PT'S CURRENT STATUS, LABS AND POC FOR TODAY. ORDERS TO BE GIVEN AND WILL BE CARRIED OUT. WILL CONTINUE TO MONITOR. UNABLE TO TURN AT TIMES DUE TO POOR RESPIRATORY STATUS. SATS RANGING LOW AT 83i% ON 100 % FIO2. CONTINUE CARE.
--- NOTE | 2020-10-22 12:15 | NUR ---
WOUND CARE NOTE: PATIENT ADMITTED TO [facility] WITH COVID 19, SEPSIS. SHE IS INTUBATED, SEDATED. PATIENT HAS CURRENT KARL SCORE OF 10. SHE IS DNR. ADDED PATIENT TO SKIN INTEGRITY MONITORING FOR INTUBATION STATUS. PATIENT IS TOO UNSTABLE HEMODYNAMICALLY TO TURN/REPOSITION. SKIN/WOUND CARE PLAN IMPLEMENTED. PATIENT RESTING ON ICU LOW AIRLOSS BED. RECOMMEND: FREQUENT TURN SCHEDULE Q 2 HOURS, PRN CONDITION PERMITS, WITH PRESSURE REDISTRIBUTION USING PILLOWS/WEDGES, BID/PRN APPLICATION WITH MOISTURE BARRIER CREAM, OPTIFOAM GENTLE SACRAL DRESSING, DIETARY CONSULT FOR INTUBATION STATUS (ON BOARD), SKIN/WOUND CARE PLAN, CONTINUED MONITORING BY WOUND CARE TEAM.
[2020-10-22] MEDS: PROPOFOL 100 ML IV SCH (15:30)
[2020-10-22] MEDS: MIDAZOLAM DRIP 50 mg/50mL 50 ML IV SCH ×2 (15:31→21:34)
--- NOTE | 2020-10-22 15:36 | NUR ---
UNABLE TO TURN AT THIS TIME: RESPIRATORY STATUS POOR. CURRENTLY SATS AT 85% ON 100% FIO2, PEEP 12. PATIENT CONTINUES ON LEFT SIDE AT THIS TIME. TOO HEMODYNAMICALLY UNSTABLE AT THIS TIME.
--- NOTE | 2020-10-22 15:58 | NUR ---
VALUABLES PICKED UP BY FAMILY PATIENT'S DAUGHTER, DEONTE, PICKED UP PATIENT'S PHONE AND PHONE HOME STAGING SPECIALIST AT THIS TIME. I HAVE PERSONALLY GIVEN ITEMS TO DAUGHTER AND GIVEN HER AN UPDATE ON PT'S STATUS. PW VERIFIED.
--- NOTE | 2020-10-22 17:51 | NUR ---
UNABLE TO TURN AT THIS TIME PATIENT HEMODYNAMICALLY UNSTABLE AT THIS TIME. CURRENT O2 SATS O AT 84% ON 100 % FIO2.
--- NOTE | 2020-10-22 19:30 | NUR ---
OPENING NOTE REPORT RECEIVED FROM ERICK ENCINAS. THIS IS A POSITIVE COVID PATIENT ON NOVEL RESPIRATORY ISOLATION. RECEIVED ORALLY INTUBATED FEMALE PATIENT. PATIENT IS SEDATED, POSITIVE COUGH AND GAG NOTED. PUPILS 3 AND SLUGGISH. HEART RATE IN 80'S, BP IN HIGH 90'S WITH HELP OF LEVOPHED. ETT 8.0, 24 AT THE LIP. VENT SETTINGS: PC, RATE 22, P 22, FIO2 100%, PEEP 12. LUNG SOUNDS ARE COARSE/DIMINISHED THROUGHOUT. SPO2 ONLY AT 83-86% AT THIS TIME. PATIENT IS HEMODYNAMICALLY TOO UNSTABLE FOR TURNING AND REPOSITIONS AT THIS TIME. OGT CLAMPED. RESIDUALS CHECKED AND 10ML OF GREEN BILE NOTED. ENCARNACION IN PLACE DRAINING YELLOW URINE TO GRAVITY. RECEIVED PATIENT ON VERSED AT 15, FENTANYL AT 150 AND LEVOPHED AT 13MCG. SEE IV SPREADSHEET FOR DETAILS. LINES: LEFT UPPER ARM MIDLINE AND RIGHT FOREARM 20G. PATIENT NEEDS ANOTHER LINE FOR PPN THAT IS ORDERED FOR TONIGHT. WILL START NEW LINE.
--- NOTE | 2020-10-22 19:35 | NUR ---
IV insertion IV access obtained, via clean sterile technique by inserting 22 gauge catheter at RIGHT UPPER ARM. IV secured properly. No trauma to site. Patient tolerated well.
[2020-10-22] MEDS ORDERED: PPN PER PHARMACY IV NR ×10 (20:00)
--- NOTE | 2020-10-22 20:00 | NUR ---
UNSTABLE TO TURN PATIENT TOO HEMODYNAMICALLY UNSTABLE TO TURN. PATIENT SATS 83% ON 100% FIO2. PATIENT DESATURATES WITH MINIMAL MOVEMENT. WILL HOLD OFF ON TURNING AT THIS TIME.
[2020-10-22] MEDS: ATORVASTATIN 20 MG TAB PO SCH (21:31)
[2020-10-22] MEDS: INSULIN LANTUS (GLARGINE) 1 /0.01ml (100units/ml) SC SCH (21:32)
--- NOTE | 2020-10-22 21:39 | NUR ---
FAMILY PATIENTS COUSIN VIRA CALLED FOR UPDATE. VIRA PROVIDED CORRECT PASSWORD. UPDATE GIVEN, ALL QUESTIONS ANSWERED.
--- NOTE | 2020-10-22 22:00 | NUR ---
UNSTABLE TO TURN PATIENT TOO HEMODYNAMICALLY UNSTABLE TO TURN. PATIENT SATS BETWEEN 83-85% ON 100% FIO2. PATIENT DESATURATES WITH MINIMAL MOVEMENT. WILL HOLD OFF ON TURNING AT THIS TIME.
[2020-10-23] VITALS (93 sets, daily range): BP systolic 85–126; BP diastolic 39–64
--- NOTE | 2020-10-23 | NUR ---
UNSTABLE TO TURN PATIENT TOO HEMODYNAMICALLY UNSTABLE TO TURN. PATIENT SATS BETWEEN 83-85% ON 100% FIO2. PATIENT DESATURATES WITH MINIMAL MOVEMENT. WILL HOLD OFF ON TURNING AT THIS TIME. WILL RESUME TURNS PER PATIENT STABILITY.
[2020-10-23] MEDS: ACCU-CHEK COMFORT CURVE STRIP VI SCH ×4 (00:17→17:59)
[2020-10-23] MEDS: InsuLIN REG 1unit/0.01ml Soln (100units/ml) SC SCH ×4 (00:20→18:04)
[2020-10-23] MEDS: MIDAZOLAM DRIP 50 mg/50mL 50 ML IV SCH ×3 (01:02→19:25)
--- NOTE | 2020-10-23 02:00 | NUR ---
UNSTABLE TO TURN PATIENT TOO HEMODYNAMICALLY UNSTABLE TO TURN. PATIENT SATS BETWEEN 78-81% ON 100% FIO2. PATIENT DESATURATES WITH MINIMAL MOVEMENT. WILL HOLD OFF ON TURNING AT THIS TIME. WILL RESUME TURNS PER PATIENT STABILITY.
[2020-10-23] MEDS: fentaNYL Drip 2500mCg/250mlNS 250 ML IV SCH ×2 (03:55→19:19)
--- NOTE | 2020-10-23 04:00 | NUR ---
UNSTABLE TO TURN PATIENT TOO HEMODYNAMICALLY UNSTABLE TO TURN. PATIENT SATS BETWEEN 84-86% ON 100% FIO2. PATIENT DESATURATES WITH MINIMAL MOVEMENT. WILL HOLD OFF ON TURNING AT THIS TIME. WILL RESUME TURNS PER PATIENT STABILITY.
[2020-10-23 04:52] LABS: Potassium 4.6 mmol/L (3.5-5.1)
[2020-10-23 04:58] LABS: Albumin 1.6 g/dL (3.4-5.0); BUN/Creatinine Ratio 32.6; Bilirubin, Total 0.5 mg/dL (0.2-1.0); Calcium 7.8 mg/dL (8.5-10.1); Magnesium 2.4 mg/dL (1.6-2.6); Phosphorus 6.2 mg/dL (2.5-4.90); Total Protein 6.7 g/dL (6.4-8.2)
[2020-10-23] MEDS: MEROPENEM 1GM IVPB 100 ML IV SCH ×3 (06:09→22:04)
[2020-10-23] MEDS: ENOXAPARIN SOD 80 MG/0.8ML SYRINGE SC SCH ×2 (06:09→19:23)
[2020-10-23] MEDS: BUDESONIDE (INHALATION) 0.5 MG/2 ML NEB NEB SCH ×2 (07:00→18:44)
--- NOTE | 2020-10-23 07:05 | NUR ---
CLOSING PATIENT REMAINS INTUBATED AND SEDATED. SPO2 87% ON FIO2 100% WITH PEEP OF 12. UNABLE TO TURN PATIENT DURING THE NIGHT DUE TO PATIENT BEING HEMODYNAMICALLY UNSTABLE. WILL ENDORSE CARE TO AM SHIFT RN.
[2020-10-23] MEDS: NOREPINEPHRINE 8 MG/250ML KIT 250 ML IV SCH ×3 (08:00→23:33)
--- NOTE | 2020-10-23 08:25 | NUR ---
INCREASED PRESSURE TO 24, AND RR TO 26, PER DR. RIVAS'S T.O., ABG TO FOLLOW.
[2020-10-23] MEDS: FUROSEMIDE 40 MG/4 ML VIAL IV SCH (09:41)
[2020-10-23] MEDS: DexAMETHasone SOD PHOS 10MG/1ML VIAL INJ IV SCH (09:42)
[2020-10-23] MEDS: PANTOPRAZOLE 40 MG/10 ML VIAL INJ IV SCH ×2 (09:43→21:53)
[2020-10-23] MEDS: LINEZOLID 600MG/300ML 300 ML IV SCH ×2 (09:43→21:54)
[2020-10-23] MEDS: ASPirin 81 mg TAB PO SCH (09:44)
[2020-10-23] MEDS: ZINC SULFATE 220mg CAP or TAB PO SCH (09:45)
[2020-10-23] MEDS: CHOLECALCIFEROL (VITD3) 2,000 UNIT CAP PO SCH (09:46)
[2020-10-23] MEDS: POTASSIUM CHL 20 Meq TABLET PO SCH (09:46)
[2020-10-23 12:16] LABS: INR 1.05 (0.9-1.15); Partial Thromboplastin Time 28.4 sec (23.0-31.2)
--- NOTE | 2020-10-23 13:00 | NUR ---
Pt's fingerstick Lgfshmh=810 repeated FSBS= 411. Pt was given 20 units of Regular insulin per Sliding scale . Dr Bingham notified of pt's high blood sugar. She will discontinue pt's steroid and increase lantus to 20 units at bedtime.
--- NOTE | 2020-10-23 13:20 | NUR ---
INCREASED RR TO 28, PER DR. RIVAS'S TJONAS Hayden IN AM .
--- NOTE | 2020-10-23 14:33 | NUR ---
Nutrition Followup/Consult Notes Wt: 80.6 kg Pt is positive for COVID, in isolation, pt is still on TPN @ 70 ml/hr, providing 1028 kcals, 80g protein and 708 NPCs. TPN support meets 54-63% of est energy needs and 90-99% of est protein needs. Est energy needs 1150-4205 kcal (20-23 kcal/kg BW 81.3kg) Est protein needs 81-89g (1.0-1.1g/kg BW r/t elev RFT hypoalb) Will monitor and reassess prn. LABS: BUN 47H, Creat 1.44H, Alb 1.6L, Ca 7.8L, GLUC 361H GI: Pt had 1 BM 10/22 per RN doc. BS: 10 high risk. Refer to wound assessment report for further details PES: Altered nutrition related labs aeb pt with elevated RFTs, hyperglycemia, elevated HgbA1C, hypoalb r/t current and chronic medical condition Inadequate oral intake aeb pt with 16% avg po intake per Rn note r/t current medical condition Comments: Will Continue to monitor po intake, labs, skin. F/u 2-3 days Rec: 1) Continue to advance TPN to meet >75% of needs 2) advance diet as medically feasible 3) continue current plan of care
[2020-10-23] MEDS: ALBUTEROL SULF 2.5 MG/0.5ML(0.5%) NEB SOLN NEB PRN ×2 (15:20→18:43)
--- NOTE | 2020-10-23 17:00 | NUR ---
PICC LINE IN THE UNIT, STATED SHE'S UNABLE TO PLACE PICC LINE TODAY . SHE'S BEEN AWARE OF THE PT'S STATUS. cONSENT AND COAG LABS IN PLACE. PICC LINE CE LPUMMER STATED PICC LINE WILL BE PLACED IN AM. WILL BE NOTIFIED.
[2020-10-23] MEDS: PROPOFOL 100 ML IV SCH (17:30)
--- NOTE | 2020-10-23 18:37 | NUR ---
PT REMAINS SEDATED ON FENTANYL AND VERSED DRIP, RASS,-3. DESATURATED TO 84% DURING REPOSITIONING.LEVOPHED DRIP @ 7 MCG/MIN VENT SETTING PER PULM. ORDER. NEXT ABG AND CXR IN AM. CONTINUE CARE.
[2020-10-23 19:03] LABS: Basophils # (auto) 0 10 ^3/uL (0-0.2); Eosinophils # (auto) 0 10 ^3/uL (0-0.8); Hematocrit 36.9 % (36.0-46.0); Hemoglobin 11.5 g/dL (12.2-16.2); Lymphocytes # (auto) 1.1 10 ^3/uL (0.4-5.4); Lymphocytes % (auto) 5.5 % (10.0-50.0); Mean Corpuscular Hemoglobin 29.9 pg (28.0-32.0); Mean Corpuscular Hgb Conc. 31.2 g/dL (32.0-36.0); Monocytes # (auto) 0.6 10 ^3/uL (0-1.3); Monocytes % (auto) 2.8 % (0.0-12.0); Neutrophils # (auto) 18.4 10 ^3/uL (1.6-8.6); Neutrophils % (auto) 91.7 % (37.0-80.0); Nucleated Red Blood Cells % 0.1 %; Platelet Count (auto) 147 10^3/uL (140-450); Red Blood Cells 3.85 10^6/uL (4.0-5.20); Red Cell Distribution Width 14.2 % (11.8-14.3); White Blood Cell 20.1 10^3/uL (4.4-10.8)
[2020-10-23] MEDS ORDERED: PPN PER PHARMACY IV NR ×8 (20:00)
--- NOTE | 2020-10-23 20:00 | NUR ---
OPENING NOTE REPORT RECEIVED FROM ERICK ENCINAS. THIS IS A POSITIVE COVID PATIENT ON NOVEL RESPIRATORY ISOLATION. RECEIVED ORALLY INTUBATED FEMALE PATIENT. PATIENT IS SEDATED, POSITIVE COUGH AND GAG NOTED. PUPILS 3 AND SLUGGISH. HEART RATE IN 80'S, BP IN HIGH 110'S WITH HELP OF LEVOPHED. ETT 8.0, 24 AT THE LIP. VENT SETTINGS: PC, RATE 28, P 24, FIO2 100%, PEEP 12. LUNG SOUNDS ARE COARSE/DIMINISHED THROUGHOUT. SPO2 AT 93% AT THIS TIME. OGT CLAMPED. RESIDUALS CHECKED AND 10ML OF GREEN BILE NOTED. ENCARNACION IN PLACE DRAINING YELLOW URINE TO GRAVITY. RECEIVED PATIENT ON VERSED AT 15, FENTANYL AT 150 AND LEVOPHED AT 7MCG. SEE IV SPREADSHEET FOR DETAILS. LINES: LEFT UPPER ARM MIDLINE, RIGHT FOREARM 20G, AND RIGHT UPPER ARM 22G.
--- NOTE | 2020-10-23 21:31 | NUR ---
FAMILY PATIENTS COUSIN VIRA CALLED FOR AN UPDATE. CORRECT PASSWORD WAS PROVIDED BY VIRA. UPDATE GIVEN, ALL QUESTIONS ANSWERED.
[2020-10-23] MEDS: ATORVASTATIN 20 MG TAB PO SCH (21:54)
[2020-10-23] MEDS: INSULIN LANTUS (GLARGINE) 1 /0.01ml (100units/ml) SC SCH (21:55)
--- NOTE | 2020-10-23 23:49 | NUR ---
CRITICAL/MD AWARE PATIENTS BLOOD GLUCOSE WAS 421, REPEAT WAS 406. HOSPITALIST PAGED. SPOKE WITH SHARIF CEDILLO. NO NEW ORDERS AT THIS TIME. INSULIN GIVEN PER SLIDING SCALE.
[2020-10-24] VITALS (97 sets, daily range): BP systolic 74–132; BP diastolic 40–74
[2020-10-24] MEDS: ACCU-CHEK COMFORT CURVE STRIP VI SCH ×4 (00:01→18:22)
[2020-10-24] MEDS: InsuLIN REG 1unit/0.01ml Soln (100units/ml) SC SCH ×4 (00:02→18:27)
[2020-10-24] MEDS: MIDAZOLAM DRIP 50 mg/50mL 50 ML IV SCH ×5 (02:21→22:11)
--- NOTE | 2020-10-24 03:29 | NUR ---
DESATURATION/HYPOTENSION WHILE PROVIDING PATIENT WITH ORAL CARE AND SUCTIONING, PATIENT BEGAN TO DESATURATE INTO LOW 70'S. PATIENT IMMEDIATELY REPOSITIONED INTO HIGH FOWLERS. VENT SETTINGS UNCHANGED AND PATIENT STILL RECEIVING 100% FIO2 ON PC. BLOOD PRESSURE ALSO NOTED TO DECREASE TO 74/40. LEVOPHED INCREASED-SEE IV FLOW SHEET. PATIENT TOOK SOME TIME FOR SPO2 TO RECOVER. SPO2 NOW BACK UP TO 93% AFTER ABOUT 15 MINUTES.
[2020-10-24 05:28] LABS: Potassium 4.6 mmol/L (3.5-5.1)
[2020-10-24 05:41] LABS: Albumin 1.6 g/dL (3.4-5.0); BUN/Creatinine Ratio 41.8; Bilirubin, Total 0.4 mg/dL (0.2-1.0); Calcium 7.6 mg/dL (8.5-10.1); Magnesium 2.2 mg/dL (1.6-2.6); Phosphorus 5.2 mg/dL (2.5-4.90); Total Protein 5.9 g/dL (6.4-8.2)
[2020-10-24] MEDS: MEROPENEM 1GM IVPB 100 ML IV SCH ×3 (06:06→22:09)
[2020-10-24] MEDS: ENOXAPARIN SOD 80 MG/0.8ML SYRINGE SC SCH ×2 (06:06→22:00)
--- NOTE | 2020-10-24 06:20 | NUR ---
ABG DONE AND REPORTED TO DR SANDHU. NO NEW ORDERS RECEIVED. WILL CONTINUE TO MONITOR PT.
--- NOTE | 2020-10-24 07:19 | NUR ---
CLOSING PATIENT REMAINS INTUBATED AND SEDATED. SPO2 93% AT THIS TIME. NO VENT CHANGES BY RT THROUGH THE NIGHT. TEMP NOW AT 98.1F. CARE ENDORSED TO DAYSHIFT RN.
[2020-10-24] MEDS: PANTOPRAZOLE 40 MG/10 ML VIAL INJ IV SCH ×2 (08:23→22:10)
[2020-10-24] MEDS: LINEZOLID 600MG/300ML 300 ML IV SCH ×2 (08:23→22:10)
[2020-10-24] MEDS: CHOLECALCIFEROL (VITD3) 2,000 UNIT CAP PO SCH (08:23)
[2020-10-24] MEDS: ZINC SULFATE 220mg CAP or TAB PO SCH (08:23)
[2020-10-24] MEDS: ASPirin 81 mg TAB PO SCH (08:23)
[2020-10-24] MEDS: FUROSEMIDE 40 MG/4 ML VIAL IV SCH (08:24)
--- NOTE | 2020-10-24 09:30 | NUR ---
Family updated on pt status Family of OZZIEDEMOND updated on patient's status and condition. All questions and concerns addressed. Lisa verbalized understanding with correct password.
--- NOTE | 2020-10-24 09:34 | NUR ---
PICC line placement Patient significant other educated on need for PICC line placement. All risks and benefits explained and all questions and concerns addressed prior to procedure. Noted past medical history and allergies with no contraindications. INR and Plt counts within acceptable range. 5fr PICC line inserted via right brachial vein using [employer] US and Tip Location System. Sterile technique with maximum barrier precautions utilized. Blood return obtained from each of 3 lumens and each flushed easily with NS using proper technique. PICC secured with Stat-lock; biodisc and occlusive dressing applied. Stat portable chest x-ray obtained for PICC tip placement. *Baseline Arm Circumference 30cm. PICC lot #[id number]. Internal length 40cm External length 0cm
--- NOTE | 2020-10-24 09:49 | NUR ---
Pharmacy called to notify patient has a central line in place and Per picc line nurse, ok to use use. Cathy, pharmacist verbalized understanding.
[2020-10-24] MEDS: POTASSIUM CHL 20 Meq TABLET PO SCH (10:00)
--- NOTE | 2020-10-24 10:14 | NUR ---
Training And Documentation Specialist Training And Documentation Specialist updated on patients status. See md notes/orders.
[2020-10-24] MEDS: SODIUM CHLOR 0.9% PF (SALINE LOCK) 10ML VIAL/SYR IV SCH ×2 (10:37→22:10)
--- NOTE | 2020-10-24 10:57 | NUR ---
Pharmacy called to notify per md, No new bag for TPN tonight. Dr. Bingham stating to slowly start on tube feedings as tolerated.
[2020-10-24] MEDS ORDERED: Glucerna 1.2 Cal 1Liter BOTTLE GT SCH (11:00)
[2020-10-24] MEDS: ALBUTEROL SULF 2.5 MG/0.5ML(0.5%) NEB SOLN NEB PRN ×2 (11:09→23:58)
[2020-10-24] MEDS: BUDESONIDE (INHALATION) 0.5 MG/2 ML NEB NEB SCH ×2 (11:09→23:58)
--- NOTE | 2020-10-24 11:16 | NUR ---
OK to use PICC line Xray completed. OK to use PICC line by RADIOLOGIST.
--- NOTE | 2020-10-24 12:00 | NUR ---
Piccline dressing change TARUN Picc line noted to bleed. Dressing change completed and snow applied. 1lb sandbag over site. Will continue to monitor.
--- NOTE | 2020-10-24 12:30 | NUR ---
NUTRITION TUBE FEEDING PUMP UNAVAILABLE. DR. KERNS CALLED TO NOTIFY, OK TO START ON BOLUS GLUCERNA FEEDINGS TOLERATED. PATIENT GIVEN 60ML BOLUS OF GLUCERNA VIA OG. ASPIRATION PRECAUTIONS IN PLACE. WILL CONTINUE TO MONITOR.
--- NOTE | 2020-10-24 13:00 | NUR ---
Family updated on pt status Family of DEMOND HORNE updated on patient's status and condition. All questions and concerns addressed. Daughter asking further information on tracheostomy placement and follow up care needed. Daughter updated on process and rehabilitation needed. Daughter verbalized understanding. Daughter stating her mother has been have good and bad days and they want to give their mother a few more days before making a decision. Addendum: 10/24/20 at 1607 by Fang Owens RN wrong patient
--- NOTE | 2020-10-24 14:00 | NUR ---
Warming Measures applied. Patient currently has temp of 97.7 , warming measures in place.
--- NOTE | 2020-10-24 15:59 | NUR ---
Family updated on pt status Family of IRVINGFUNMILAYOWillDEMOND updated on patient's status and condition. All questions and concerns addressed. Daughter verbalized understanding with correct password.
[2020-10-24] MEDS: PROPOFOL 100 ML IV SCH (17:30)
--- NOTE | 2020-10-24 18:00 | NUR ---
NUTRITION GASTRIC RESIDUAL NOTED TO HAVE 30ML OF TUBE FEEDING WITH DARK GREEN BILIOUS FLUIDS NOTED. PT GIVEN 100ML BOLUS FEEDING OF GLUCERNA. ASPIRATION PRECAUTIONS IN PLACE. WILL CONTINUE TO MONITOR.
--- NOTE | 2020-10-24 19:50 | NUR ---
OPENING NOTE REPORT RECEIVED FROM ERICK ENCINAS. THIS IS A POSITIVE COVID PATIENT ON NOVEL RESPIRATORY ISOLATION. RECEIVED ORALLY INTUBATED FEMALE PATIENT. PATIENT IS SEDATED, POSITIVE HYPOACTIVE COUGH AND GAG NOTED. PUPILS 3 AND SLUGGISH. HEART RATE IN 70- 80'S, BP SUPPORTED WITH LEVOPHED. ETT 8.0, 24 AT THE LIP. VENT SETTINGS: PC, RATE 28, P 24, FIO2 100%, PEEP 12. SPO2 AT 95% AT THIS TIME. NEW ORDER FOR TUBE FEEDINGS BY MD ORDERED TODAY. NO AVAILABLE FEEDING PUMPS. PER MD OK TO GIVE BOLUS FEEDINGS. RESIDUALS CHECKED AND 10ML RECEIVED AND PUT BACK GLUCERNA 80ML GIVEN VIA BOLUS. WILL MONITOR RESIDUALS.ENCARNACION IN PLACE DRAINING YELLOW URINE TO GRAVITY. RECEIVED PATIENT ON VERSED AT 15, FENTANYL AT 150 AND LEVOPHED AT 8MCG. SEE IV SPREADSHEET FOR DETAILS. LINES: LEFT UPPER ARM MIDLINE, RIGHT UPPER ARM 22G, LEFT UPPER CHEST 22G AND NEW RIGHT UPPER ARM PICC LINE TRIPLE LUMEN CATHETER. PICC LINE NOTED TO BE OOZING BLOOD. 1 LB WEIGHT BAG IN PLACE FOR PRESSURE. ALL LINES FLUSHING AND WORKING. WILL CONTINUE TO MONITOR.
[2020-10-24] MEDS ORDERED: TPN PER PHARMACY IV NR ×10 (20:00)
[2020-10-24] MEDS: INSULIN LANTUS (GLARGINE) 1 /0.01ml (100units/ml) SC SCH (22:00)
--- NOTE | 2020-10-24 22:00 | NUR ---
RESIDUALS/BOLUS FEEDING RESIDUALS CHECKED, STILL 10ML. 80ML BOLUS OF GLUCERNA GIVEN. WILL CONTINUE TO MONITOR.
[2020-10-24] MEDS: ATORVASTATIN 20 MG TAB PO SCH (22:10)
--- NOTE | 2020-10-24 22:10 | NUR ---
MED HELD HELD 2200 LOVENOX DUE TO PATIENT PICC LINE ACTIVELY OOZING FRESH BLOOD.
[2020-10-25] VITALS (89 sets, daily range): BP systolic 80–128; BP diastolic 26–65
--- NOTE | 2020-10-25 | NUR ---
RESIDUALS/BOLUS FEEDING RESIDUALS CHECKED, STILL 10ML. 80ML BOLUS OF GLUCERNA GIVEN. WILL CONTINUE TO MONITOR.
[2020-10-25] MEDS: ACCU-CHEK COMFORT CURVE STRIP VI SCH ×5 (00:30→23:27)
[2020-10-25] MEDS: InsuLIN REG 1unit/0.01ml Soln (100units/ml) SC SCH ×5 (00:31→23:59)
[2020-10-25] MEDS: MIDAZOLAM DRIP 50 mg/50mL 50 ML IV SCH ×2 (01:37→05:19)
--- NOTE | 2020-10-25 02:00 | NUR ---
FAMILY PATIENT DAUGHTER KAY CALLED. CORRECT PASSWORD WAS PROVIDED. UPDATE GIVEN, ALL QUESTIONS ANSWERED.
--- NOTE | 2020-10-25 02:00 | NUR ---
RESIDUALS/BOLUS FEEDING RESIDUALS CHECKED, STILL 10ML. 80ML BOLUS OF GLUCERNA GIVEN. WILL CONTINUE TO MONITOR.
--- NOTE | 2020-10-25 04:00 | NUR ---
RESIDUALS/BOLUS FEEDING RESIDUALS CHECKED, STILL 10ML. 80ML BOLUS OF GLUCERNA GIVEN. WILL CONTINUE TO MONITOR.
[2020-10-25] MEDS: fentaNYL Drip 2500mCg/250mlNS 250 ML IV SCH ×2 (04:35→18:26)
--- NOTE | 2020-10-25 06:00 | NUR ---
RESIDUALS/BOLUS FEEDING RESIDUALS CHECKED, STILL 10ML. 80ML BOLUS OF GLUCERNA GIVEN. WILL CONTINUE TO MONITOR.
--- NOTE | 2020-10-25 06:15 | NUR ---
AM CARES PATIENT GIVEN BED BATH AND LINEN CHANGE. SKIN REASSESSED AT THIS TIME, NO CHANGES.
--- NOTE | 2020-10-25 06:20 | NUR ---
DESATURATION/HYPOTENSION DURING AM CARES, PATIENT WAS TURNED TO CHANGE LINEN. PATIENT BEGAN TO DESATURATE INTO LOW 80'S AND BP DROPPED TO 67/26. PATIENT IMMEDIATELY REPOSITIONED TO HIGH FOWLERS. PATIENT WAS SUCTIONED AND LEVO INCREASED
--- NOTE | 2020-10-25 06:32 | NUR ---
MED NOT AVAILABLE CALLED PHARMACY REGARDING NO [facility] IN [facility] TO BULLET MEDICATION.
[2020-10-25] MEDS: MEROPENEM 1GM IVPB 100 ML IV SCH ×3 (06:51→22:36)
[2020-10-25] MEDS: ALBUTEROL SULF 2.5 MG/0.5ML(0.5%) NEB SOLN NEB PRN ×2 (07:15→18:36)
[2020-10-25] MEDS: BUDESONIDE (INHALATION) 0.5 MG/2 ML NEB NEB SCH ×2 (07:15→18:36)
--- NOTE | 2020-10-25 07:25 | NUR ---
CLOSING REPORT ENDORSED TO ERICK ENCINAS
--- NOTE | 2020-10-25 08:00 | NUR ---
Picc line continues to ooze, PICC line dressing change done with a sterile technique. Cleansed with chloraprep scrub/betadine. Snow dressing applied. Stat lock, and bio-patch as available. Occlusive dressing applied. See e-MAR for medications given during this visit.
[2020-10-25] MEDS: FUROSEMIDE 40 MG/4 ML VIAL IV SCH (08:13)
[2020-10-25] MEDS: ASPirin 81 mg TAB PO SCH (08:13)
[2020-10-25] MEDS: PANTOPRAZOLE 40 MG/10 ML VIAL INJ IV SCH ×2 (08:13→20:59)
[2020-10-25 08:14] LABS: Albumin 1.7 g/dL (3.4-5.0); Calcium 7.7 mg/dL (8.5-10.1); Magnesium 2.5 mg/dL (1.6-2.6); Potassium 4.8 mmol/L (3.5-5.1)
[2020-10-25] MEDS: CHOLECALCIFEROL (VITD3) 2,000 UNIT CAP PO SCH (08:14)
[2020-10-25] MEDS: ZINC SULFATE 220mg CAP or TAB PO SCH (08:14)
[2020-10-25] MEDS: SODIUM CHLOR 0.9% PF (SALINE LOCK) 10ML VIAL/SYR IV SCH ×2 (08:14→20:59)
[2020-10-25 08:19] LABS: BUN/Creatinine Ratio 52.2; Bilirubin, Total 0.4 mg/dL (0.2-1.0); Pre Albumin 30.2 mg/dL (20.0-40.0); Total Protein 5.6 g/dL (6.4-8.2)
[2020-10-25] MEDS ORDERED: POTASSIUM EFFERVESENT TAB 25 MEQ GT SCH (10:00)
[2020-10-25] MEDS: ENOXAPARIN SOD 80 MG/0.8ML SYRINGE SC SCH ×2 (10:00→22:00)
--- NOTE | 2020-10-25 10:03 | NUR ---
Nutrition Followup Notes Wt: 80.6 kg Pt is positive for COVID, in isolation. pt is currently NPO off PN support currently on EN support with Glucerna @ 80 ml per 2 hrs bolus providing 1152 kcals and 57 gm proteins Est energy needs 0481-4293 kcal (20-23 kcal/kg BW 81.3kg), Est protein needs 81-89g (1.0-1.1g/kg BW r/t elev RFT hypoalb) Will monitor and reassess prn. LABS: BUN 72 H CREAT 1.38 H CA 7.7 L, ALB 1.7 L GLU 155 H GI: Pt had 1 BM 10/22 per RN doc. BS: 10 high risk. Refer to wound assessment report for further details PES: Altered nutrition related labs aeb pt with elevated RFTs, hyperglycemia, elevated HgbA1C, hypoalb r/t current and chronic medical condition Inadequate oral intake aeb pt with 16% avg po intake per Rn note r/t current medical condition Comments: Will Continue to monitor NPO status, EN tolerance, labs, skin. F/u 2-3 days Rec: 1) advance EN support to 60ml/hr or 120 ml per 2 hrs to meet > 75% of needs. 2) advance diet as medically feasible 3) consdier prostat 1 packet bid as RFT improve. 4) continue current plan of care
--- NOTE | 2020-10-25 10:05 | NUR ---
Nutrition Total of 60ml of gastric residual aspirated. No bolus given at this time. Will continue to monitor. Aspiration precautions in place.
--- NOTE | 2020-10-25 10:41 | NUR ---
MD ROUNDS DR. CAGE UPDATED ON PATIENTS STATUS. SEE MD NOTES/ORDERS. MD AWARE OF RIGHT UPPER ARM OOZING SINCE INSERTIONS. MD AWARE LOVENOX WAS HELD.
[2020-10-25] MEDS: LINEZOLID 600MG/300ML 300 ML IV SCH ×2 (12:49→20:59)
[2020-10-25] MEDS: PROPOFOL 100 ML IV SCH (12:52)
[2020-10-25] MEDS: NOREPINEPHRINE 8 MG/250ML KIT 250 ML IV SCH (12:52)
[2020-10-25 13:10] LABS: Hematocrit 33.1 % (36.0-46.0); Hemoglobin 10.8 g/dL (12.2-16.2); Mean Corpuscular Hemoglobin 30.4 pg (28.0-32.0); Mean Corpuscular Hgb Conc. 32.6 g/dL (32.0-36.0); Mean Corpuscular Volume 93.2 fL (80.0-100.0); Platelet Count (auto) 118 10^3/uL (140-450); Red Blood Cells 3.56 10^6/uL (4.0-5.20); Red Cell Distribution Width 13.7 % (11.8-14.3); White Blood Cell 17.5 10^3/uL (4.4-10.8)
[2020-10-25 13:21] LABS: Band Neutrophils % (manual) 0; Basophils % (manual) 0 (0.0-2.0); Blast Cells 0; Eosinophils % (manual) 0 (0-7); Metamyelocytes % 0; Myelocytes % 0; Promyelocytes % 0; Reactive Lymphocytes 0
[2020-10-25 15:52] LABS: Lymphocytes % (manual) 9 (10.0-50.0); Monocytes % (manual) 2 (0-12)
--- NOTE | 2020-10-25 16:52 | NUR ---
Family updated on pt status Family of DEMOND HORNE updated on patient's status and condition. All questions and concerns addressed. Daughter verbalized understanding.
--- NOTE | 2020-10-25 19:56 | NUR ---
Levophed increased to 10 mcg/min, SBP 70-80's for several cycles, MAP<60.
[2020-10-25] MEDS: INSULIN LANTUS (GLARGINE) 1 /0.01ml (100units/ml) SC SCH (22:37)
[2020-10-26] VITALS (95 sets, daily range): BP systolic 80–129; BP diastolic 27–60
[2020-10-26] MEDS: NOREPINEPHRINE 8 MG/250ML KIT 250 ML IV SCH ×2 (01:11→18:25)
--- NOTE | 2020-10-26 03:34 | NUR ---
Received a call from pt's dtr, updated on pt's status and POC, all questions and concerns were addressed, verbalized understanding.
--- NOTE | 2020-10-26 04:00 | NUR ---
Hygiene/elimination Morning care done, moderate amount of loose stools noted, cleansed and sacral optifoam changed, partial linen changed. Repositioned for comfort.
[2020-10-26 04:30] LABS: Basophils # (auto) 0 10 ^3/uL (0-0.2); Basophils % (auto) 0.2 % (0.0-2.0); Eosinophils # (auto) 0.1 10 ^3/uL (0-0.8); Eosinophils % (auto) 0.6 % (0.0-7.0); Hematocrit 33.5 % (36.0-46.0); Hemoglobin 10.9 g/dL (12.2-16.2); Lymphocytes # (auto) 1.8 10 ^3/uL (0.4-5.4); Lymphocytes % (auto) 10.4 % (10.0-50.0); Mean Corpuscular Hemoglobin 29.9 pg (28.0-32.0); Mean Corpuscular Hgb Conc. 32.6 g/dL (32.0-36.0); Mean Corpuscular Volume 91.9 fL (80.0-100.0); Monocytes # (auto) 0.7 10 ^3/uL (0-1.3); Monocytes % (auto) 3.9 % (0.0-12.0); Neutrophils # (auto) 14.9 10 ^3/uL (1.6-8.6); Neutrophils % (auto) 84.9 % (37.0-80.0); Nucleated Red Blood Cells % 0.1 %; Platelet Count (auto) 103 10^3/uL (140-450); Red Blood Cells 3.64 10^6/uL (4.0-5.20); Red Cell Distribution Width 13.8 % (11.8-14.3); White Blood Cell 17.6 10^3/uL (4.4-10.8)
[2020-10-26 04:48] LABS: Potassium 5.3 mmol/L (3.5-5.1)
[2020-10-26 04:53] LABS: BUN/Creatinine Ratio 56.7; Calcium 8.1 mg/dL (8.5-10.1)
[2020-10-26] MEDS: MEROPENEM 1GM IVPB 100 ML IV SCH ×3 (05:20→22:00)
[2020-10-26] MEDS: ACCU-CHEK COMFORT CURVE STRIP VI SCH ×4 (05:20→23:48)
[2020-10-26] MEDS: InsuLIN REG 1unit/0.01ml Soln (100units/ml) SC SCH ×4 (05:56→23:48)
[2020-10-26] MEDS ORDERED: SODIUM ZIRCONIUM CYCL 10 GM PAK PO ONE (07:45)
--- NOTE | 2020-10-26 07:46 | NUR ---
Elevated Potassium Paged the hospitalist and spoke with Mario OLGUIN, made aware of K 5.3, gave an order for sharita AD. Will inform day shift RN.
--- NOTE | 2020-10-26 08:00 | NUR ---
REPORT OBTAINED UPDATED ON PATIENT STATUS. NEW ORDER IN PLACE FOR ELEVATED K. PATIENT REMAINS INTUBATED/SEDATED, ON PRESSORS. SEE IV SPREADSHEET/ INTERVENTIONS.
--- NOTE | 2020-10-26 08:00 | NUR ---
NUTRITION 120ML OF GASTRIC RESIDUAL. TF ON HOLD. ASPIRATION PRECAUTIONS IN PLACE.
[2020-10-26] MEDS: SODIUM CHLOR 0.9% PF (SALINE LOCK) 10ML VIAL/SYR IV SCH ×2 (08:44→22:00)
[2020-10-26] MEDS: PANTOPRAZOLE 40 MG/10 ML VIAL INJ IV SCH ×2 (08:44→22:00)
[2020-10-26] MEDS: LINEZOLID 600MG/300ML 300 ML IV SCH ×2 (08:45→22:00)
[2020-10-26] MEDS: CHOLECALCIFEROL (VITD3) 2,000 UNIT CAP PO SCH (08:45)
[2020-10-26] MEDS: ZINC SULFATE 220mg CAP or TAB PO SCH (08:45)
--- NOTE | 2020-10-26 09:00 | NUR ---
PETROLEUM REFINERY WORKER ROUNDS PETROLEUM REFINERY WORKER AYESHA AT BEDSIDE. SEE PETROLEUM REFINERY WORKER NOTES/ ORDERS.
--- NOTE | 2020-10-26 09:05 | NUR ---
REPORTED CRITICAL ABG RESULTS TO SHARIF HODGE. NO FURTHER ORDERS AT THIS TIME.
[2020-10-26] MEDS: MIDAZOLAM DRIP 50 mg/50mL 50 ML IV SCH ×3 (10:00→21:00)
--- NOTE | 2020-10-26 10:00 | NUR ---
DESATURATION PATIENT NOTED TO DESATURATE DURING CARES TO 82%. PATIENT REMAINS ON 100% FI02 PEEP OF 12 ON PC. BP ALSO TRENDS DOWN TO 80'S. WITHOUT INTERVENTION PATIENTS POX AND BP RETURN TO BORDERLINE BASELINE VITALS.
[2020-10-26] MEDS: BUDESONIDE (INHALATION) 0.5 MG/2 ML NEB NEB SCH ×2 (10:08→19:14)
[2020-10-26] MEDS: ALBUTEROL SULF 2.5 MG/0.5ML(0.5%) NEB SOLN NEB PRN ×2 (10:08→19:14)
[2020-10-26] MEDS: fentaNYL Drip 2500mCg/250mlNS 250 ML IV SCH ×3 (13:13→22:00)
--- NOTE | 2020-10-26 14:00 | NUR ---
NUTRITION PATIENTS GASTRIC RESIDUAL NOTED AT 10MLS. TUBE FEEDINGS UNCLAMPED TO LOW SLOW GTT. WILL CONTINUE TO MONITOR. ASPIRATION PRECAUTIONS IN PLACE.
[2020-10-26] MEDS: PROPOFOL 100 ML IV SCH (14:40)
[2020-10-26] MEDS: ENOXAPARIN SOD 80 MG/0.8ML SYRINGE SC SCH ×2 (14:40→22:00)
[2020-10-26 15:19] LABS: BUN/Creatinine Ratio 57.4; Calcium 6.7 mg/dL (8.5-10.1)
[2020-10-26 16:08] LABS: Potassium 4.4 mmol/L (3.5-5.1)
[2020-10-26] MEDS: INSULIN LANTUS (GLARGINE) 1 /0.01ml (100units/ml) SC SCH (22:00)
[2020-10-27] VITALS (86 sets, daily range): BP systolic 87–131; BP diastolic 17–77
--- NOTE | 2020-10-27 04:00 | NUR ---
PT DESAT TO 79 RT PAGED, WHEN ARRIVED AT BEDSIDE INFORMED THAT PT DESATS TO 60S BUT RECOVERS. PT RECOVERS TO 95%
[2020-10-27 04:30] LABS: Basophils # (auto) 0 10 ^3/uL (0-0.2); Basophils % (auto) 0.1 % (0.0-2.0); Eosinophils # (auto) 0.4 10 ^3/uL (0-0.8); Eosinophils % (auto) 2.1 % (0.0-7.0); Hematocrit 36.2 % (36.0-46.0); Hemoglobin 11.2 g/dL (12.2-16.2); Mean Corpuscular Hemoglobin 30.7 pg (28.0-32.0); Mean Corpuscular Volume 99.1 fL (80.0-100.0); Monocytes # (auto) 0.7 10 ^3/uL (0-1.3); Monocytes % (auto) 4.3 % (0.0-12.0); Neutrophils # (auto) 13.7 10 ^3/uL (1.6-8.6); Neutrophils % (auto) 81.5 % (37.0-80.0); Platelet Count (auto) 76 10^3/uL (140-450); Red Blood Cells 3.65 10^6/uL (4.0-5.20); Red Cell Distribution Width 15.1 % (11.8-14.3); White Blood Cell 16.8 10^3/uL (4.4-10.8)
[2020-10-27 04:46] LABS: Potassium 5.5 mmol/L (3.5-5.1)
[2020-10-27 04:50] LABS: BUN/Creatinine Ratio 66.7; Calcium 8.1 mg/dL (8.5-10.1)
[2020-10-27] MEDS: MEROPENEM 1GM IVPB 100 ML IV SCH ×3 (06:00→22:24)
[2020-10-27] MEDS: InsuLIN REG 1unit/0.01ml Soln (100units/ml) SC SCH ×3 (06:16→17:38)
[2020-10-27] MEDS: ACCU-CHEK COMFORT CURVE STRIP VI SCH ×3 (06:17→17:38)
[2020-10-27] MEDS: BUDESONIDE (INHALATION) 0.5 MG/2 ML NEB NEB SCH ×3 (06:30→18:56)
[2020-10-27] MEDS: ALBUTEROL SULF 2.5 MG/0.5ML(0.5%) NEB SOLN NEB PRN ×3 (06:30→18:56)
--- NOTE | 2020-10-27 09:45 | NUR ---
PT K=5.5, BUN=62 CREA=0.93, I/O BALANCE = +369. WITH VENT SUPPORT. HR=91 SINUS RHYTHM NO ECTOPIES. PLACED A CALL TO PMD (DR KERNS. AWAITS RESPONSE.CONTINUE TO MONITOR.
[2020-10-27] MEDS: SODIUM CHLOR 0.9% PF (SALINE LOCK) 10ML VIAL/SYR IV SCH ×2 (09:54→22:24)
[2020-10-27] MEDS: PANTOPRAZOLE 40 MG/10 ML VIAL INJ IV SCH ×2 (09:54→22:24)
[2020-10-27] MEDS: ZINC SULFATE 220mg CAP or TAB PO SCH (09:55)
[2020-10-27] MEDS: LINEZOLID 600MG/300ML 300 ML IV SCH ×2 (09:55→22:26)
[2020-10-27] MEDS: CHOLECALCIFEROL (VITD3) 2,000 UNIT CAP PO SCH (09:56)
[2020-10-27] MEDS: ENOXAPARIN SOD 80 MG/0.8ML SYRINGE SC SCH ×2 (09:56→22:25)
[2020-10-27] MEDS: NOREPINEPHRINE 8 MG/250ML KIT 250 ML IV SCH ×3 (09:58→23:30)
--- NOTE | 2020-10-27 10:30 | NUR ---
DR RIVAS IN THE UNIT, MD COVERING FOR PMD. NOTIFIED OF PT'S HIGH K LEVEL TODAY. UPDATED WITH PT'S STATUS. PT STILL DESATS TO 85 WITH MINIMAL REPOSITIONING, MD WILL PUT IN ORDERS.
[2020-10-27] MEDS ORDERED: SODIUM BICARBONATE 8.4% INJ 50ML SYRINGE IV ONE (11:15)
[2020-10-27] MEDS ORDERED: ALBUTEROL SULF 2.5 MG/0.5ML(0.5%) NEB SOLN NEB ONE (11:15)
[2020-10-27] MEDS ORDERED: DEXTROSE (50%) 50ML SYRG IV ONE (11:15)
[2020-10-27] MEDS ORDERED: InsuLIN REG 1unit/0.01ml Soln (100units/ml) IV ONE (11:15)
[2020-10-27] MEDS: MIDAZOLAM DRIP 50 mg/50mL 50 ML IV SCH ×4 (12:00→22:30)
--- NOTE | 2020-10-27 12:00 | NUR ---
PT K=5.5 PT MEDICATED WITH SODIUM BICARB 1 AMP, D50 I AMP AND 10 UNITS OF REGULAR INSULIN. DR RIVAS ORDERED TO TITRATE FIO2 TO 90 % TOLERATED. RT AWARE.
[2020-10-27] MEDS: fentaNYL Drip 2500mCg/250mlNS 250 ML IV SCH ×2 (12:05→23:40)
--- NOTE | 2020-10-27 13:00 | NUR ---
MAP=53, LEVOPHED DRIP TITRATED TO 10 MCG/MIN, O2 SAT DOWN TO 86 POST SUCTIONING. FIO2 KEPT AT 100%. CONTINUE TO MONITOR.
--- NOTE | 2020-10-27 13:51 | NUR ---
Nutrition Followup Notes Wt: 88.8 kg Pt is positive for COVID, in isolation. pt is currently NPO off EN support and was on hold due to high residuals. pt was on EN support with Glucerna Est energy needs 8585-0340 kcal (20-23 kcal/kg BW 81.3kg), Est protein needs 81-89g (1.0-1.1g/kg BW r/t elev RFT hypoalb) Will monitor and reassess prn. LABS: BUN 62 H GLU 173 H CA 8.1 L GI: Pt had 1 BM today per RN doc. BS: 10 high risk. Refer to wound assessment report for further details PES: Altered nutrition related labs aeb pt with elevated RFTs, hyperglycemia, elevated HgbA1C, hypoalb r/t current and chronic medical condition Inadequate oral intake aeb pt with 16% avg po intake per Rn note r/t current medical condition Comments: Will Continue to monitor NPO status, labs, skin. F/u 2-3 days Rec: 1) resume EN support with glcuerna to 60ml/hr or 120 ml per 2 hrs to meet > 75% of needs. 2) advance diet as medically feasible 3) consdier prostat 1 packet bid as RFT improve. 4) continue current plan of care
--- NOTE | 2020-10-27 17:00 | NUR ---
PT O2 SAT 88- 90 % ON FIO2 100% . UNABLE TO TITRATE.
[2020-10-27] MEDS: PROPOFOL 100 ML IV SCH (17:30)
--- NOTE | 2020-10-27 18:45 | NUR ---
PT' DESATURATED TO 50-60'S POST SUCTIONING. RR=38, BP=87/30. VQ=755 + PULSES, SKIN DRY. CONTINUE BP SUPPORT WITH LEVOPHED, VERSED TO KEEP RASS TO -3. RESP. THERAPIST AT BEDSIDE. CONTINUE TO MONITOR.
--- NOTE | 2020-10-27 19:15 | NUR ---
o2 SAT 88%, MAP=65 mmHg. CONTINUE PRESENT MGT. ENDORSED TO NOC SHIFT.
[2020-10-27] MEDS: INSULIN LANTUS (GLARGINE) 1 /0.01ml (100units/ml) SC SCH (22:00)
[2020-10-28] VITALS (85 sets, daily range): BP systolic 88–142; BP diastolic 18–66
--- NOTE | 2020-10-28 04:00 | NUR ---
ATTEMPT TO OBTAIN LAB FROM LUE LINE FUTILE. LAB ATTEMPT TO DRAW BLOOD ALSO FUTILE. WILL ENDORSE TO AM RN
--- NOTE | 2020-10-28 05:05 | NUR ---
DURING THIS SHIFT PT NOTED TO DESAT TO 60s REPOSITIONING TO LATERAL POSITION PROVIDES BETTER O2 SATURATION THAN SUPINE POSITIONING. PT SATS MOSTLY IN THE HIGH 80s TO LOW 90s CONSISTENTLY IN LATERAL POSITIONS.
[2020-10-28] MEDS: ACCU-CHEK COMFORT CURVE STRIP VI SCH ×5 (06:00→23:52)
[2020-10-28] MEDS: ALBUTEROL SULF 2.5 MG/0.5ML(0.5%) NEB SOLN NEB PRN ×2 (06:00→20:48)
[2020-10-28] MEDS: InsuLIN REG 1unit/0.01ml Soln (100units/ml) SC SCH ×5 (06:00→23:52)
[2020-10-28] MEDS: BUDESONIDE (INHALATION) 0.5 MG/2 ML NEB NEB SCH ×2 (06:00→19:05)
[2020-10-28] MEDS: MEROPENEM 1GM IVPB 100 ML IV SCH (06:00)
[2020-10-28] MEDS: MIDAZOLAM DRIP 50 mg/50mL 50 ML IV SCH ×4 (07:35→20:00)
--- NOTE | 2020-10-28 08:00 | NUR ---
PT VENTED AND MODERATELY SEDATED WITH BP SUPPORT. COMPLETE ASSESSMENT DONE AFTER SHIFT REPORT. DURING SHIFT REPORT PT NOTED TO DROP SATURATION TO 50s WITHOUT POSITION CHANGES HOWEVER RT SUCTIONED PT APPROXIMATELY 10 MINUTES PRIOR. PT SELF RECOVERS TO HIGH 80s AFTER 5-8 MINUTES, THEN LOW 90s AFTER ANOTHER 10 MINUTES.
[2020-10-28] MEDS ORDERED: NOREPINEPHRINE 8 MG/250ML KIT 250 ML IV ONE (09:29)
--- NOTE | 2020-10-28 09:45 | NUR ---
DR RIVAS IN THE UNIT, AWARE OF PT'S EPISODES OF DESATURATION EVEN WITH MINIMAL REPOSITIONING, NO VENT CHANGES TODAY. CONTINUE SEDATION AND BP SUPPORT. MD AWARE PT UNABLE TO TOLERATE TUBE FEEDING. PT TO START TPN PER PHARMACY.AM LABS PENDING, MD WILL CHECK.
[2020-10-28] MEDS: PANTOPRAZOLE 40 MG/10 ML VIAL INJ IV SCH ×2 (10:10→22:00)
[2020-10-28] MEDS: SODIUM CHLOR 0.9% PF (SALINE LOCK) 10ML VIAL/SYR IV SCH ×2 (10:10→22:00)
[2020-10-28] MEDS: ENOXAPARIN SOD 80 MG/0.8ML SYRINGE SC SCH ×2 (10:11→22:00)
[2020-10-28] MEDS: ZINC SULFATE 220mg CAP or TAB PO SCH (10:11)
[2020-10-28] MEDS: CHOLECALCIFEROL (VITD3) 2,000 UNIT CAP PO SCH (10:11)
[2020-10-28] MEDS ORDERED: TPN PER PHARMACY 0 ML IV SCH (10:15)
[2020-10-28 10:20] LABS: Basophils # (auto) 0 10 ^3/uL (0-0.2); Basophils % (auto) 0.2 % (0.0-2.0); Eosinophils # (auto) 0.4 10 ^3/uL (0-0.8); Eosinophils % (auto) 2.5 % (0.0-7.0); Hematocrit 28.8 % (36.0-46.0); Hemoglobin 9.4 g/dL (12.2-16.2); Lymphocytes # (auto) 1.3 10 ^3/uL (0.4-5.4); Lymphocytes % (auto) 7.2 % (10.0-50.0); Mean Corpuscular Hemoglobin 30.6 pg (28.0-32.0); Mean Corpuscular Hgb Conc. 32.6 g/dL (32.0-36.0); Mean Corpuscular Volume 93.9 fL (80.0-100.0); Monocytes # (auto) 0.6 10 ^3/uL (0-1.3); Monocytes % (auto) 3.3 % (0.0-12.0); Neutrophils # (auto) 15.3 10 ^3/uL (1.6-8.6); Neutrophils % (auto) 86.8 % (37.0-80.0); Platelet Count (auto) 69 10^3/uL (140-450); Red Blood Cells 3.07 10^6/uL (4.0-5.20); Red Cell Distribution Width 13.9 % (11.8-14.3); White Blood Cell 17.6 10^3/uL (4.4-10.8)
[2020-10-28 10:25] LABS: BUN/Creatinine Ratio 51.7; Calcium 8.6 mg/dL (8.5-10.1); Potassium 5.2 mmol/L (3.5-5.1)
[2020-10-28 10:45] LABS: Albumin 1.5 g/dL (3.4-5.0); Bilirubin, Direct 0.3 mg/dL (0-0.2); Magnesium 2.3 mg/dL (1.6-2.6)
[2020-10-28 10:49] LABS: Bilirubin, Total 0.7 mg/dL (0.2-1.0); Pre Albumin 19.3 mg/dL (20.0-40.0); Total Protein 5.5 g/dL (6.4-8.2)
[2020-10-28] MEDS: fentaNYL Drip 2500mCg/250mlNS 250 ML IV SCH (13:03)
[2020-10-28] MEDS ORDERED: SODIUM BICARBONATE 8.4% INJ 50ML SYRINGE IV ONE (13:15)
[2020-10-28] MEDS ORDERED: InsuLIN REG 1unit/0.01ml Soln (100units/ml) IV ONE (13:15)
[2020-10-28] MEDS ORDERED: DEXTROSE (50%) 50ML SYRG IV ONE (13:15)
--- NOTE | 2020-10-28 13:20 | NUR ---
LAB RESULTS CBC & BMP VERIFIED WITH DR RIVAS. K=5.2 PT'S HR 86-109 NO ECTOPIES. UO NOTED BY MD. PT GIVE 1 AMP SODIUM BICARB, 1 AMP D50 AND REGULAR INSULIN 10 UNITS IV. REPEAT LABS IN AM. CONTINUE TOMONITOR.
[2020-10-28] MEDS: PROPOFOL 100 ML IV SCH (17:30)
[2020-10-28] MEDS: NOREPINEPHRINE 8 MG/250ML KIT 250 ML IV SCH (18:05)
--- NOTE | 2020-10-28 20:00 | NUR ---
PT STARTED ON TPN.
[2020-10-28] MEDS: TPN PER PHARMACY IV NR ×6 (20:35)
[2020-10-28] MEDS: INSULIN LANTUS (GLARGINE) 1 /0.01ml (100units/ml) SC SCH (22:00)
--- NOTE | 2020-10-28 23:00 | NUR ---
PT DESATS TO 50s WITHOUT PROVOCATION HOWEVER SELF RECOVERS TO LOW 80s. BP NOTED TO DROP OCCASIONALLY AND SELF RECOVERS TO NORMOTENSIVE .
[2020-10-29] VITALS (94 sets, daily range): BP systolic 66–167; BP diastolic 23–74
[2020-10-29] MEDS: MIDAZOLAM DRIP 50 mg/50mL 50 ML IV SCH ×3 (01:30→21:30)
[2020-10-29] MEDS: fentaNYL Drip 2500mCg/250mlNS 250 ML IV SCH ×2 (01:30→13:45)
[2020-10-29] MEDS: InsuLIN REG 1unit/0.01ml Soln (100units/ml) SC SCH ×4 (06:19→23:11)
[2020-10-29] MEDS: ACCU-CHEK COMFORT CURVE STRIP VI SCH ×5 (06:20→23:06)
[2020-10-29 08:24] LABS: Basophils # (auto) 0 10 ^3/uL (0-0.2); Eosinophils # (auto) 0.4 10 ^3/uL (0-0.8); Eosinophils % (auto) 3.2 % (0.0-7.0); Hematocrit 30.4 % (36.0-46.0); Hemoglobin 9.7 g/dL (12.2-16.2); Lymphocytes % (auto) 7.4 % (10.0-50.0); Mean Corpuscular Hemoglobin 29.6 pg (28.0-32.0); Mean Corpuscular Hgb Conc. 31.8 g/dL (32.0-36.0); Mean Corpuscular Volume 93.3 fL (80.0-100.0); Monocytes # (auto) 0.7 10 ^3/uL (0-1.3); Monocytes % (auto) 4.9 % (0.0-12.0); Neutrophils # (auto) 11.5 10 ^3/uL (1.6-8.6); Neutrophils % (auto) 84.5 % (37.0-80.0); Platelet Count (auto) 64 10^3/uL (140-450); Red Blood Cells 3.26 10^6/uL (4.0-5.20); Red Cell Distribution Width 14.1 % (11.8-14.3); White Blood Cell 13.6 10^3/uL (4.4-10.8)
[2020-10-29] MEDS: CHOLECALCIFEROL (VITD3) 2,000 UNIT CAP PO SCH (08:24)
[2020-10-29] MEDS: SODIUM CHLOR 0.9% PF (SALINE LOCK) 10ML VIAL/SYR IV SCH ×2 (08:24→22:00)
[2020-10-29] MEDS: ENOXAPARIN SOD 80 MG/0.8ML SYRINGE SC SCH (08:24)
[2020-10-29] MEDS: ZINC SULFATE 220mg CAP or TAB PO SCH (08:24)
[2020-10-29] MEDS: PANTOPRAZOLE 40 MG/10 ML VIAL INJ IV SCH (08:24)
[2020-10-29 08:41] LABS: Potassium 5.2 mmol/L (3.5-5.1)
[2020-10-29 08:50] LABS: Albumin 1.5 g/dL (3.4-5.0); BUN/Creatinine Ratio 43.8; Bilirubin, Total 0.5 mg/dL (0.2-1.0); Calcium 8.5 mg/dL (8.5-10.1); Magnesium 2.3 mg/dL (1.6-2.6); Phosphorus 3.2 mg/dL (2.5-4.90)
[2020-10-29] MEDS: BUDESONIDE (INHALATION) 0.5 MG/2 ML NEB NEB SCH ×2 (10:00→19:18)
--- NOTE | 2020-10-29 10:51 | NUR ---
Nutrition Followup Notes Wt: 89.9 kg Pt is positive for COVID, in isolation. pt is currently NPO now initiated on PN support @ 42 ml/hr providing 1050 kcals and 50 gm proteins Est energy needs 2227-4741 kcal (20-23 kcal/kg BW 81.3kg), Est protein needs 81-89g (1.0-1.1g/kg BW r/t elev RFT hypoalb) Will monitor and reassess prn. LABS: glu 198 h alb 1.5 l co2 33 h bun 29 h GI: Pt had 1 BM 10/28 per RN doc. BS: 8 high risk. Refer to wound assessment report for further details PES: Altered nutrition related labs aeb pt with elevated RFTs, hyperglycemia, elevated HgbA1C, hypoalb r/t current and chronic medical condition Inadequate oral intake aeb pt with 16% avg po intake per Rn note r/t current medical condition Comments: Will Continue to monitor NPO status, PN tolerance, labs, skin. F/u 2-3 days Rec: 1) resume EN support with Glucerna to 60ml/hr. 2) advance PN support to meet > 75% of needs if pt unable to george EN. 3) advance diet as medically feasible 3) consider prostat 1 packet bid as RFT improve. 4) continue current plan of care
[2020-10-29] MEDS: NOREPINEPHRINE 8 MG/250ML KIT 250 ML IV SCH (15:28)
[2020-10-29] MEDS: PROPOFOL 100 ML IV SCH (17:30)
[2020-10-29] MEDS ORDERED: FUROSEMIDE 20 MG/2 ML VIAL IV ONE (18:30)
[2020-10-29] MEDS: ALBUTEROL SULF 2.5 MG/0.5ML(0.5%) NEB SOLN NEB PRN (19:18)
--- NOTE | 2020-10-29 19:45 | NUR ---
OPEN NOTES ASSUMED CARE OF PATIENT. ISOLATED FOR POSITIVE COVID RESULTS FULL ASSESSMENT DONE -REFER INTERVENTIONS
--- NOTE | 2020-10-29 19:50 | NUR ---
DESATURATION WHILE DOING PATIENT ASSESSMENT,PATIENT DESATURATED TO LOW 65% SUCTIONED - SMALL AMOUNT OF SECRETIONS NOTED SATS SLOWLY GOING UP 88% IF PATIENT IS NOT STIMULATED WILL CONTINUE TO MONITOR
[2020-10-29] MEDS: TPN PER PHARMACY IV NR ×6 (20:00)
[2020-10-29] MEDS ORDERED: TPN PER PHARMACY IV NR ×8 (20:00)
--- NOTE | 2020-10-29 20:00 | NUR ---
UNABLE TO DO FULL TURN PATIENT DESATS EASILY BED PLACED ON LATERAL ROTATION MODE
[2020-10-29] MEDS: INSULIN LANTUS (GLARGINE) 1 /0.01ml (100units/ml) SC SCH (23:10)
[2020-10-30] VITALS (99 sets, daily range): BP systolic 87–128; BP diastolic 38–66
[2020-10-30] MEDS: MIDAZOLAM DRIP 50 mg/50mL 50 ML IV SCH ×4 (00:51→19:46)
[2020-10-30] MEDS: NOREPINEPHRINE 8 MG/250ML KIT 250 ML IV SCH ×2 (01:20→11:13)
[2020-10-30] MEDS: fentaNYL Drip 2500mCg/250mlNS 250 ML IV SCH ×2 (01:21→12:23)
[2020-10-30] MEDS: ACCU-CHEK COMFORT CURVE STRIP VI SCH ×3 (05:58→18:00)
--- NOTE | 2020-10-30 06:00 | NUR ---
SPONGE BATH DONE BUT UNABLE TO TURN PATIENT STILL DESATS EASILY EVERY TIME PATIENT COUGHS SHE DESATURATES TO 60% THEN SLOWLY PICKS UP TO 80% AND STAYS AT 85-88% RT INFORMED
[2020-10-30 06:22] LABS: Basophils # (auto) 0 10 ^3/uL (0-0.2); Basophils % (auto) 0.2 % (0.0-2.0); Eosinophils # (auto) 0.5 10 ^3/uL (0-0.8); Eosinophils % (auto) 4.4 % (0.0-7.0); Hematocrit 26.6 % (36.0-46.0); Hemoglobin 8.6 g/dL (12.2-16.2); Lymphocytes # (auto) 1.5 10 ^3/uL (0.4-5.4); Lymphocytes % (auto) 14.2 % (10.0-50.0); Mean Corpuscular Hemoglobin 30.6 pg (28.0-32.0); Mean Corpuscular Hgb Conc. 32.2 g/dL (32.0-36.0); Monocytes # (auto) 0.7 10 ^3/uL (0-1.3); Monocytes % (auto) 6.4 % (0.0-12.0); Neutrophils # (auto) 7.8 10 ^3/uL (1.6-8.6); Neutrophils % (auto) 74.8 % (37.0-80.0); Platelet Count (auto) 56 10^3/uL (140-450); Red Cell Distribution Width 14.1 % (11.8-14.3); White Blood Cell 10.4 10^3/uL (4.4-10.8)
[2020-10-30 06:27] LABS: Potassium 4.1 mmol/L (3.5-5.1)
[2020-10-30] MEDS: InsuLIN REG 1unit/0.01ml Soln (100units/ml) SC SCH ×3 (06:32→18:34)
[2020-10-30 06:35] LABS: Albumin 1.4 g/dL (3.4-5.0); BUN/Creatinine Ratio 50.8; Bilirubin, Total 0.4 mg/dL (0.2-1.0); Calcium 8.2 mg/dL (8.5-10.1); Magnesium 2.1 mg/dL (1.6-2.6); Phosphorus 2.7 mg/dL (2.5-4.90); Total Protein 5.2 g/dL (6.4-8.2)
--- NOTE | 2020-10-30 07:10 | NUR ---
REPORT REPORT GIVEN TO CE BENAVIDES
[2020-10-30] MEDS: SODIUM CHLOR 0.9% PF (SALINE LOCK) 10ML VIAL/SYR IV SCH ×2 (08:38→22:00)
[2020-10-30] MEDS: CHOLECALCIFEROL (VITD3) 2,000 UNIT CAP PO SCH (08:38)
[2020-10-30] MEDS: BUDESONIDE (INHALATION) 0.5 MG/2 ML NEB NEB SCH ×2 (10:00→18:17)
[2020-10-30] MEDS ORDERED: ENOXAPARIN SOD 40 MG/0.4 ML SYRINGE SC SCH (10:00)
--- NOTE | 2020-10-30 10:35 | NUR ---
Respiratory note: VENT CHANGES MADE PER . INCREASE RR TO 30 AND IP TO 28. ABG IN 2 HOURS.
[2020-10-30] MEDS: ALBUTEROL SULF 2.5 MG/0.5ML(0.5%) NEB SOLN NEB PRN ×2 (11:42→18:17)
[2020-10-30] MEDS: PROPOFOL 100 ML IV SCH (17:18)
[2020-10-30] MEDS ORDERED: TPN PER PHARMACY IV NR ×8 (20:00)
--- NOTE | 2020-10-30 20:00 | NUR ---
Unstable to turn Pt too unstable to turn, desaturating to 70's with minimal stimulation. Will continue to monitor. Addendum: 10/30/20 at 2252 by CHRIS SHAH RN RN Amended: Links added.
--- NOTE | 2020-10-30 20:00 | NUR ---
Opening Shift Note received report from day shift RN Izabela. Pt is DNR, DNR signed by doctor and in front of chart. Pt came in on 10/07/20 for SOB and was COVID positive. Pt was admitted to the TELE floor but hemodynamically declined and was intubated on 10/21. Pt has no past medical history. All history obtained from chart and previous RN. Pt is currently intubated and sedated. Pt desaturates with minimal stimulation to the 70's. Pt is on fentanyl 200, versed 12, Levo 10 and TPN running at 42mls/hr. VSS at this time. Bed is locked at lowest position, side rails are up. Will continue to monitor.
[2020-10-30] MEDS: INSULIN LANTUS (GLARGINE) 1 /0.01ml (100units/ml) SC SCH (22:00)
--- NOTE | 2020-10-30 22:00 | NUR ---
Unstable to turn Pt too unstable to turn, desaturating to 70's with minimal stimulation. Will continue to monitor ability to tolerate turn Addendum: 10/30/20 at 2252 by CHRIS SHAH RN RN Amended: Links added.
[2020-10-31] VITALS (96 sets, daily range): BP systolic 74–139; BP diastolic 34–67
--- NOTE | 2020-10-31 | NUR ---
Unstable to turn Pt too unstable to turn, desaturating to 70's with minimal stimulation. Will continue to monitor. Addendum: 10/31/20 at 0014 by CHRIS SHAH RN RN Amended: Links added.
[2020-10-31] MEDS: fentaNYL Drip 2500mCg/250mlNS 250 ML IV SCH ×2 (00:07→12:31)
[2020-10-31] MEDS: NOREPINEPHRINE 8 MG/250ML KIT 250 ML IV SCH ×3 (00:08→23:30)
[2020-10-31] MEDS: MIDAZOLAM DRIP 50 mg/50mL 50 ML IV SCH ×5 (00:08→21:30)
--- NOTE | 2020-10-31 02:00 | NUR ---
Unstable to turn Pt too unstable to turn, desaturating to 70's with minimal stimulation. Will continue to monitor ability to tolerate turn Addendum: 10/31/20 at 0212 by CHRIS SHAH RN RN Amended: Links added.
--- NOTE | 2020-10-31 04:00 | NUR ---
Unstable to turn Pt too unstable to turn, desaturating to 40's with minimal stimulation. Respiratory at bedside. Will continue to monitor ability to tolerate turn
[2020-10-31 05:48] LABS: Potassium 3.8 mmol/L (3.5-5.1)
[2020-10-31 05:54] LABS: Albumin 1.4 g/dL (3.4-5.0); BUN/Creatinine Ratio 49.2; Bilirubin, Total 0.4 mg/dL (0.2-1.0); Calcium 8.2 mg/dL (8.5-10.1); Magnesium 1.9 mg/dL (1.6-2.6); Phosphorus 2.9 mg/dL (2.5-4.90); Total Protein 5.2 g/dL (6.4-8.2)
[2020-10-31] MEDS: BUDESONIDE (INHALATION) 0.5 MG/2 ML NEB NEB SCH ×2 (06:00→19:02)
[2020-10-31] MEDS: ALBUTEROL SULF 2.5 MG/0.5ML(0.5%) NEB SOLN NEB PRN ×2 (06:00→19:03)
--- NOTE | 2020-10-31 06:00 | NUR ---
Unstable to turn Pt too hemodynamically unstable to turn, desaturating to 60's with no stimulation. Respiratory at bedside. Will continue to monitor ability to tolerate turn Addendum: 10/31/20 at 0614 by CHRIS SHAH RN RN Amended: Links added.
[2020-10-31] MEDS: ACCU-CHEK COMFORT CURVE STRIP VI SCH ×4 (06:07→12:32)
[2020-10-31] MEDS: InsuLIN REG 1unit/0.01ml Soln (100units/ml) SC SCH ×5 (06:54→18:27)
--- NOTE | 2020-10-31 08:02 | NUR ---
Pt's Sp02 in the 70's. Turned patient to left side and sats went down to the 40's. Pt coughing and gagging on ETT, sats continued to stay low. Increased versed gtt to 15mg/hr. Pt relaxed and sats improved to the mid 80's. Continuing to monitor.
[2020-10-31] MEDS: CHOLECALCIFEROL (VITD3) 2,000 UNIT CAP PO SCH (08:30)
[2020-10-31] MEDS: SODIUM CHLOR 0.9% PF (SALINE LOCK) 10ML VIAL/SYR IV SCH ×2 (08:30→21:38)
--- NOTE | 2020-10-31 09:25 | NUR ---
Nutrition Followup Notes Wt: 89.9 kg Pt is positive for COVID, in isolation. pt is currently NPO now initiated on PN support @ 56 ml/hr providing 1270 kcals and 80 gm proteins 950 NCP. pt with fair PN support as it meets 67-78% kcals and 82-89% proteins Est energy needs 0873-4899 kcal (20-23 kcal/kg BW 81.3kg), Est protein needs 89-97 g (1.0-1.2g/kg BW r/t elev RFT hypoalb) Will monitor and reassess prn. Reassessed as hypoalb and wnl RFT LABS: CO2 36 H GLU 216 H CA 8.2 L, ALB 1.4 L GI: Pt had 1 BM 10/28 per RN doc. BS: 11 high risk. Refer to wound assessment report for further details PES: Altered nutrition related labs aeb pt with elevated RFTs, hyperglycemia, elevated HgbA1C, hypoalb r/t current and chronic medical condition Inadequate oral intake aeb pt with 16% avg po intake per Rn note r/t current medical condition Comments: Will Continue to monitor NPO status, PN tolerance, labs, skin. F/u 2-3 days Rec: 1) resume EN support with Glucerna to 60ml/hr. 2) advance PN support to meet > 75% of needs if pt unable to george EN. 3) advance diet as medically feasible 3) consider prostat 1 packet bid as RFT improve. 4) continue current plan of care
--- NOTE | 2020-10-31 10:00 | NUR ---
Dr. Bingham at bedside. Notified physician of pt's saturations continuing to be in the 70's and worsening down to the 40's with turning/oral care/stimulation of any kind. Also made MD aware that HR getting as high as the 120's. Will reattempt a turn at 1200, but cannot at this time due to 02 sats in the 70's. Will continue to monitor. No new orders.
--- NOTE | 2020-10-31 11:26 | NUR ---
WOUND CARE NOTE: WOUND CARE IN TO SEE PATIENT FOR REEVALUATION. UNABLE TO REEVALUATE PATIENT DUE TO PATIENT BEING HEMODYNAMICALLY UNSTABLE TO TURN AT THIS TIME.
--- NOTE | 2020-10-31 12:00 | NUR ---
Pt coughing, oxygen saturation dropped to the 40's. After approximately 20 minutes, pt's saturations improved to 76. RT and Dr. Bingham aware. Continuing to monitor.
[2020-10-31] MEDS: PROPOFOL 100 ML IV SCH ×2 (12:28→17:24)
--- NOTE | 2020-10-31 12:30 | NUR ---
Pt coughing and breathing over ventilator, oxygen saturations in the 50's. Sedation medications currently: Versed at 15mg/hr and Fentanyl at 200mcg/hr. Propofol started at this time to help pt be more sedated and be able to tolerate ventilator.
--- NOTE | 2020-10-31 14:00 | NUR ---
Pt tolerated turn better. Oxygen saturations before turn were 86% and decreased to 81% with turn and took a few minutes to return to pre-turn baseline. Will continue to turn as tolerated by patient.
--- NOTE | 2020-10-31 19:30 | NUR ---
Opening Shift Note received report from day shift RN Izabela. Pt is DNR, DNR signed by doctor and in front of chart. Pt came in on 10/07/20 for SOB and was COVID positive. Pt was admitted to the TELE floor but hemodynamically declined and was intubated on 10/21. Pt has no past medical history. All history obtained from chart and previous RN. Pt is currently intubated and sedated. Pt desaturates with no stimulation to the 60's. Pt is on fentanyl 200, versed 15, Propofol 25, Levo 14 and TPN running at 56mls/hr. VSS at this time aside from the low spo2 in the 60-70's. Bed is locked at lowest position, side rails are up. Will continue to monitor.
[2020-10-31] MEDS ORDERED: TPN PER PHARMACY IV NR ×9 (20:00)
--- NOTE | 2020-10-31 20:00 | NUR ---
Unstable to turn Pt too hemodynamically unstable to turn. Pt's spo2 in the 60's with no stimulation. Will continue to assess the patient for the ability to turn and position. Addendum: 10/31/20 at 2149 by CHRIS SHAH RN RN Amended: Links added.
[2020-10-31] MEDS: INSULIN LANTUS (GLARGINE) 1 /0.01ml (100units/ml) SC SCH (21:39)
--- NOTE | 2020-10-31 21:56 | NUR ---
Unstable to turn Pt too hemodynamically unstable to turn. Pt's spo2 in the 70's with no stimulation. Will continue to assess the patient for the ability to turn and position. Addendum: 10/31/20 at 2156 by CHRIS SHAH RN RN Amended: Links added.
[2020-11-01] VITALS (96 sets, daily range): BP systolic 75–116; BP diastolic 34–65
--- NOTE | 2020-11-01 | NUR ---
Unstable to turn Pt too hemodynamically unstable to turn. Pt's spo2 in the 70's with no stimulation. Will continue to assess the patient for the ability to tolerate turn and position. Addendum: 11/01/20 at 0557 by CHRIS SHAH RN RN Amended: Links added.
[2020-11-01] MEDS: ACCU-CHEK COMFORT CURVE STRIP VI SCH ×5 (00:28→23:47)
[2020-11-01] MEDS: InsuLIN REG 1unit/0.01ml Soln (100units/ml) SC SCH ×5 (00:32→23:47)
[2020-11-01] MEDS: MIDAZOLAM DRIP 50 mg/50mL 50 ML IV SCH ×3 (00:39→10:28)
[2020-11-01] MEDS: PROPOFOL 100 ML IV SCH (00:40)
--- NOTE | 2020-11-01 01:48 | NUR ---
Unstable to turn Pt too hemodynamically unstable to turn. Pt's spo2 in the 70's with no stimulation. Will continue to assess the patient for the ability to tolerate turn and position. Addendum: 11/01/20 at 0149 by CHRIS SHAH RN RN Amended: Links added.
--- NOTE | 2020-11-01 04:00 | NUR ---
Unstable to turn Pt too hemodynamically unstable to turn. Pt's spo2 in the 70's with no stimulation. Will continue to assess the patient for the ability to turn and position. Addendum: 11/01/20 at 0554 by CHRIS SHAH RN RN Amended: Links added.
--- NOTE | 2020-11-01 05:57 | NUR ---
Unstable to turn Pt too hemodynamically unstable to turn. Pt's spo2 in the 70's with no stimulation. Will continue to assess the patient for the ability to turn and position. Addendum: 11/01/20 at 0557 by CHRIS SHAH RN RN Amended: Links added.
[2020-11-01 06:08] LABS: Potassium 4.1 mmol/L (3.5-5.1)
[2020-11-01 06:16] LABS: Albumin 1.4 g/dL (3.4-5.0); BUN/Creatinine Ratio 53.5; Bilirubin, Total 0.3 mg/dL (0.2-1.0); Calcium 8.6 mg/dL (8.5-10.1); Magnesium 1.8 mg/dL (1.6-2.6); Phosphorus 4.4 mg/dL (2.5-4.90); Pre Albumin 12.6 mg/dL (20.0-40.0); Total Protein 5.7 g/dL (6.4-8.2)
[2020-11-01] MEDS: ALBUTEROL SULF 2.5 MG/0.5ML(0.5%) NEB SOLN NEB PRN ×2 (06:17→21:54)
[2020-11-01] MEDS: BUDESONIDE (INHALATION) 0.5 MG/2 ML NEB NEB SCH ×2 (06:17→21:53)
--- NOTE | 2020-11-01 08:00 | NUR ---
PATIENT UNSTABLE TO TURN SPO2 <85% WITH RAPID DESATURATIONS. UNABLE TO TURN PATIENT
[2020-11-01] MEDS: NOREPINEPHRINE 8 MG/250ML KIT 250 ML IV SCH (10:27)
[2020-11-01] MEDS: SODIUM CHLOR 0.9% PF (SALINE LOCK) 10ML VIAL/SYR IV SCH ×2 (10:27→22:00)
[2020-11-01] MEDS: CHOLECALCIFEROL (VITD3) 2,000 UNIT CAP PO SCH (10:27)
[2020-11-01] MEDS: fentaNYL Drip 2500mCg/250mlNS 250 ML IV SCH (12:51)
--- NOTE | 2020-11-01 13:19 | NUR ---
CALLED FAMILY AND UPDATED ON PATIENT STATUS RECEIVED CORRECT PASSWORD, SPOKE WITH KAY ZALDIVAR
--- NOTE | 2020-11-01 13:25 | NUR ---
MD KERNS AT BEDSIDE UPDATED ON PATIENT STATUS, NEW ORDERS RECEIVED
--- NOTE | 2020-11-01 13:35 | NUR ---
NO VASSOPRESSIN IN UNIT PAGED PHARMACY TO STAT MAKE ONE
[2020-11-01] MEDS ORDERED: VASOPRESSIN 50 UNITS in D5W 5% 247.5 ML IV SCH (13:45)
--- NOTE | 2020-11-01 18:37 | NUR ---
RECEIVED PHONE CALL FROM DAUGHTER VERIFIED PASSWORD, UPDATED ON PATIENT STATUS. BP LOW. FAMILY REQUEST FOR TERMINAL WEAN TOMORROW AM. CONTINUE PRESSURE SUPPORT UNTIL FAMILY IS PRESENT.
--- NOTE | 2020-11-01 18:39 | NUR ---
PAGED HOSPITALIST RECEIVED ORDER FOR EPI
[2020-11-01] MEDS ORDERED: EPINEPHrine HCL 250 ML IV SCH (18:45)
--- NOTE | 2020-11-01 19:00 | NUR ---
Opening shift note: RN resumed care of patient. RN to continue to follow POC.
[2020-11-01] MEDS ORDERED: TPN PER PHARMACY IV NR ×7 (20:00)
[2020-11-01] MEDS: INSULIN LANTUS (GLARGINE) 1 /0.01ml (100units/ml) SC SCH (22:00)
[2020-11-02] VITALS (50 sets, daily range): BP systolic 72–118; BP diastolic 43–70
[2020-11-02 05:41] LABS: Albumin 1.5 g/dL (3.4-5.0); Magnesium 2.4 mg/dL (1.6-2.6)
[2020-11-02 05:46] LABS: BUN/Creatinine Ratio 32.7; Bilirubin, Total 0.9 mg/dL (0.2-1.0); Phosphorus 8.6 mg/dL (2.5-4.90); Total Protein 6.1 g/dL (6.4-8.2)
[2020-11-02] MEDS: InsuLIN REG 1unit/0.01ml Soln (100units/ml) SC SCH (05:54)
[2020-11-02] MEDS: ACCU-CHEK COMFORT CURVE STRIP VI SCH (05:54)
[2020-11-02 06:24] LABS: Potassium 5.7 mmol/L (3.5-5.1)
--- NOTE | 2020-11-02 07:30 | NUR ---
REPORT REPORT RECEIVED FROM CHRISSY RNRICARDO. PT IN ISOLATION FOR +COVID. VIEWED PT THROUGH [facility]. PT INTUBATED AND SEDATED. PT WITH O2 SATS IN THE 50'S. PT IS A DNR STATUS WITH POSSIBLE TERMINAL WEAN TODAY.
--- NOTE | 2020-11-02 08:00 | NUR ---
PAGED DR FREEDMAN REGARDING K LEVEL OF 5.7.
--- NOTE | 2020-11-02 08:10 | NUR ---
ASSESSMENT PT IN COVID ISOLATION. PT INTUBATED AND SEDATED. NO SPONTANEOUS MOVEMENT NOTED. PUPILS 2 AND FIXED. NO COUGH AND GAG WITH ETT SUCTIONING. VENTILATOR SETTINGS: 8 FR ETT/ 23 AT THE LIP, PRESSURE CONTROL MODE, PRESSURE 28, RATE OF 30, 100% FIO2, AND PEEP OF 12. LUNGS DIMINISHED AND WITH EXPIRATORY RHONCHI THROUGHOUT. O2 SAT 44%. TELE SR 96. PALPABLE PULSES NOTED. +2 PITTING EDEMA TO BUE, HANDS, FEET, AND BLE. ABD SOFT WITH VERY HYPOACTIVE BOWEL SOUNDS. OGT WITH + PLACEMENT AND 50 ML BILE RESIDUAL. NO BM. ENCARNACION CATHETER DRAINING CLEAR YELLOW URINE. PT TOO UNSTABLE TO TURN. WITH TURN ON SUPERVISOR DOCK, O2 SATS DROPPED TO 30%. UNABLE TO ASSESS SKIN TO BACK SIDE. CONTINUE TO MONITOR.
[2020-11-02] MEDS ORDERED: FUROSEMIDE 40 MG/4 ML VIAL IV ONE (09:15)
[2020-11-02] MEDS ORDERED: FUROSEMIDE 40 MG/4 ML VIAL IV SCH (10:00)
[2020-11-02] MEDS: SODIUM CHLOR 0.9% PF (SALINE LOCK) 10ML VIAL/SYR IV SCH (10:30)
[2020-11-02] MEDS: CHOLECALCIFEROL (VITD3) 2,000 UNIT CAP PO SCH (10:30)
--- NOTE | 2020-11-02 10:30 | NUR ---
PT TOO UNSTABLE TO TURN. BLOOD SUGAR 500 AND REPEAT OF 491, PT GIVEN 20 UNITS OF REGULAR INSULIN SQ AND PAGED DR KERNS. ADMINISTERED REMAINING 20 MG OF ONE TIME DOSE OF 40MG. DR KERNS WANTS THE DAILY DOSE TO START TOMORROW.
[2020-11-02] MEDS ORDERED: AMINO ACID INFUSION IV NR ×2 (11:00)
[2020-11-02] MEDS ORDERED: INSULIN R IV NR ×2 (11:00)
[2020-11-02] MEDS ORDERED: D10W IV NR ×2 (11:00)
--- NOTE | 2020-11-02 12:10 | NUR ---
TERMINAL WEAN PER MD ORDER AND ALL DRIPS STOPPED. ONLY MEDS TO CONTINUE ARE PRN MORPHINE AND ATIVAN FOR PT COMFORT..
[2020-11-02] MEDS ORDERED: MORPHINE SULF INJ 2 MG/ML SYRINGE 1ML IV PRN (12:15)
[2020-11-02] MEDS ORDERED: MORPHINE SULF INJ 2 MG/ML SYRINGE 1ML ONE (12:21)
--- NOTE | 2020-11-02 14:10 | NUR ---
PT PRONOUNCED BY AYESHA DARDEN NP. SON AND DAUGHTER HERE AND AWARE. THEY WANT TO MAKE MORTUARY ARRANGEMENTS WITH [facility] BUT NO ANSWER.
--- NOTE | 2020-11-02 14:38 | NUR ---
ABLE TO CONTACT [facility] FOR COURTESY HOLD. WILL CONTACT DAUGHTER FOR AUTHORIZATION.
--- NOTE | 2020-11-02 14:48 | NUR ---
[facility] SPOKE WITH L[employer] AT [facility] AND THEY ARE RELEASING THE BODY TO THE MORTUARY. CASE # [id number].
--- NOTE | 2020-11-02 14:53 | NUR ---
CONTACTED PIT RECORDER'S OFFICE. INFO PROVIDED AND THEY WILL HAVE THE PIT RECORDER CONTACT ME.
--- NOTE | 2020-11-02 15:20 | NUR ---
SPOKE WITH PT'S DAUGHTER AND OBTAINED PERMISSION TO SEND PT TO [facility] A COURTESY HOLD.
--- NOTE | 2020-11-02 16:45 | NUR ---
[employer]IC[employer]US JEFFERS, EC, SPOKE WITH THE [employer]ER, FRANCESCO HOLLIDAY. OKAY TO RELEASE THE PT AND NO CASE NUMBER GIVEN.
--- NOTE | 2020-11-02 19:17 | NUR ---
PT PICKED UP BY STAFF FROM [facility].
[2020-11-02] MEDS ORDERED: TPN PER PHARMACY IV NR ×5 (20:00)
== END 2020-11-02 19:15 | DRG 870 ==
LOC: EDBD 08:50 → ER 08:50 → TELE 15:56 → OBSVTOIN 15:56 → TELE-CENTR 10-08 17:11 → TELE-WESTW 10-20 18:53 → ICU WEST 10-21 15:00
PROVIDERS: ADMIT Hospitalist; ATTEND Internal Medicine Nephrology
PROC: XW033E5 Introduction of Remdesivir Anti-infective into Peripheral Vein, Percutaneous Approach, New Technology Group 5 (ICD-10-PCS; 2020-10-09)
PROC: XW13325 Transfusion of Convalescent Plasma (Nonautologous) into Peripheral Vein, Percutaneous Approach, New Technology Group 5 (ICD-10-PCS; principal; 2020-10-11)
PROC: 5A09357 Assistance with Respiratory Ventilation, Less than 24 Consecutive Hours, Continuous Positive Airway Pressure (ICD-10-PCS; 2020-10-15)
PROC: 5A09357 Assistance with Respiratory Ventilation, Less than 24 Consecutive Hours, Continuous Positive Airway Pressure (ICD-10-PCS; 2020-10-16)
PROC: 5A09357 Assistance with Respiratory Ventilation, Less than 24 Consecutive Hours, Continuous Positive Airway Pressure (ICD-10-PCS; 2020-10-17)
PROC: 5A09357 Assistance with Respiratory Ventilation, Less than 24 Consecutive Hours, Continuous Positive Airway Pressure (ICD-10-PCS; 2020-10-18)
PROC: 5A09357 Assistance with Respiratory Ventilation, Less than 24 Consecutive Hours, Continuous Positive Airway Pressure (ICD-10-PCS; 2020-10-19)
PROC: 5A09357 Assistance with Respiratory Ventilation, Less than 24 Consecutive Hours, Continuous Positive Airway Pressure (ICD-10-PCS; 2020-10-20)
PROC: 5A1955Z Respiratory Ventilation, Greater than 96 Consecutive Hours (ICD-10-PCS; 2020-10-21)
PROC: 0BH17EZ Insertion of Endotracheal Airway into Trachea, Via Natural or Artificial Opening (ICD-10-PCS; 2020-10-21)
PROC: 5A09357 Assistance with Respiratory Ventilation, Less than 24 Consecutive Hours, Continuous Positive Airway Pressure (ICD-10-PCS; 2020-10-21)
PROC: 02HV33Z Insertion of Infusion Device into Superior Vena Cava, Percutaneous Approach (ICD-10-PCS; 2020-10-24)
DX: A41.89 Other specified sepsis (principal); U07.1 COVID-19; J96.01 Acute respiratory failure with hypoxia; J10.08 Influenza due to other identified influenza virus with other specified pneumonia; N17.0 Acute kidney failure with tubular necrosis; E43 Unspecified severe protein-calorie malnutrition; J12.89 Other viral pneumonia; R65.21 Severe sepsis with septic shock; Z66 Do not resuscitate; E78.5 Hyperlipidemia, unspecified; E66.01 Morbid (severe) obesity due to excess calories; Z68.30 Body mass index [BMI] 30.0-30.9, adult; R74.01 Elevation of levels of liver transaminase levels; E11.65 Type 2 diabetes mellitus with hyperglycemia; E11.21 Type 2 diabetes mellitus with diabetic nephropathy; N18.30 Chronic kidney disease, stage 3 unspecified; E87.6 Hypokalemia; E87.5 Hyperkalemia; I12.9 Hypertensive chronic kidney disease with stage 1 through stage 4 chronic kidney disease, or unspecified chronic kidney disease; E11.22 Type 2 diabetes mellitus with diabetic chronic kidney disease
CPT/HCPCS: 36415; 36569; 36600; 71045; 80048; 80053; 80061; 80076; 80202; 80307; 81001; 82040; 82728; 82805; 82962; 83036; 83605; 83615; 83735; 83880; 84100; 84443; 84478; 84484; 85007; 85025; 85027; 85379; 85610; 85730; 86141; 86850; 86900; 86901; 87040; 87070; 87086; 87205; 87426; 87804; 93005; 93970; 94003; 94640; 94660; 96365; 96375; 99291; C9113; G0378; J0171; J1100; J1815; J2185; J2250; J2405; J2543; J2704; J3480; J3490; J7060; J7131